=== PATIENT | female | born 1945 | race Caucasian/White ===

== ENCOUNTER → 2016-04-09 | Outpatient (CLI) | payer MEDICARE ==
[~2016-04-09] MED LIST: /WARF2TA PO; ACET50TA PO; ASTE0.15; CALC1CHW PO; CALC500T36 PO; CARV6.25 PO; LYRI75CA PO; PERC7.5T12 PO; PRIL20CA PO; VALA1TAB PO; VITA500019 PO; ZOLO50TA PO
--- NOTE | 2016-04-09 13:08 | REP ---
Clinical: Cough. Technique: PA and lateral. Findings: Subtle increased markings may reflect bronchitis. No focal consolidation, effusion, or pneumothorax. Mediastinum and cardiac silhouette normal. Skeletal structures intact. Surgical clips in the left axillary region. Impression: Possible bronchitis. No focal consolidation. Signed by Morgan Lorenzo MD 04/09/2016 12:59 P
== END ==
LOC: M WUC 12:45
PROVIDERS: ATTEND Nurse Practitioner Family
DX: R05 Cough (principal)

== ENCOUNTER 2016-04-27 08:04 | Emergency (ER) | payer MEDICARE ==
[2016-04-27] MEDS ORDERED: ONDANSETRON 4MG/2ML VIAL (J2405) As Ordered ONE (08:37)
[2016-04-27] MEDS ORDERED: MORPHINE 4 MG/ML 1ML SYRINGE As Ordered ONE ×3 (09:08→11:42)
[2016-04-27 09:17] LABS: BASO % 0.3 % (0.0-1.0); EOS # 0.1 K/mm3 (0.0-0.50); EOS % 0.9 % (0.0-3.0); LARGE UNSTAINED CELL # 0.1 K/mm3 (0.0-0.4); LARGE UNSTAINED CELL % 1.1 % (0.0-4.0); LYMPH # 1.3 K/mm3 (1.5-4.5); LYMPH % 19.8 % (24.0-44.0); MEAN CORPUSCULAR HEMOGLOBIN 31.6 pg (27.0-33.0); MEAN CORPUSCULAR HGB CONC 34.1 g/dl (32.0-36.5); MEAN CORPUSCULAR VOLUME 92.6 fl (80.0-96.0); MONO # 0.3 K/mm3 (0.0-0.8); MONO % 3.8 % (0.0-5.0); NEUTROPHILS % 74.1 % (36.0-66.0); PLATELET COUNT, AUTOMATED 165 k/mm3 (150-450); RED CELL DISTRIBUTION WIDTH 12.7 % (11.5-14.5); WHITE BLOOD COUNT 6.8 K/mm3 (4.0-10.0)
[2016-04-27 09:25] LABS: ALBUMIN 3.7 GM/DL (3.2-5.2); ALBUMIN/GLOBULIN RATIO 1.06 (1.00-1.93); ALKALINE PHOSPHATASE 121 U/L (45-117); ALT/SGPT 23 U/L (12-78); AMYLASE 35 U/L (25-115); ANION GAP 9 MEQ/L (8-16); AST/SGOT 20 U/L (15-37); BILIRUBIN,DIRECT 0.1 MG/DL (0.0-0.2); BILIRUBIN,TOTAL 0.5 MG/DL (0.2-1.0); BLOOD UREA NITROGEN 13 MG/DL (7-18); CARBON DIOXIDE LEVEL 27 MEQ/L (21-32); CHLORIDE LEVEL 106 MEQ/L (98-107); CREATININE FOR GFR 1.09 MG/DL (0.55-1.02); GLOMERULAR FILTRATION RATE 52.7 (>39); GLUCOSE, FASTING 162 MG/DL (83-110); POTASSIUM SERUM 4.3 MEQ/L (3.5-5.1); SODIUM LEVEL 142 MEQ/L (136-145); TOTAL PROTEIN 7.2 GM/DL (6.4-8.2)
[2016-04-27] MEDS ORDERED: GASTROGRAFIN SOLUTION 30ML (Q9963) As Ordered ONE (09:33)
[2016-04-27] MEDS ORDERED: ISOVUE-370 76% 100ML VIAL (Q9967) As Ordered ONE (10:38)
--- NOTE | 2016-04-27 12:15 | REP ---
CHEST, PA AND LATERAL VIEWS: Comparisons are 04/09/2016 and 06/09/2014. The lung martinez are clear. Cardiac size is upper normal. The kathleen, mediastinum, and bony thorax are unremarkable. There are surgical clips in the left axilla, unchanged. IMPRESSION: No acute cardiopulmonary findings. No change from prior studies. Signed by Fredy Perez MD 04/27/2016 05:19 P
[2016-04-27] MEDS ORDERED: KETOROLAC 30 MG/ML VIAL (J1885) As Ordered ONE (13:52)
--- NOTE | 2016-04-27 16:03 | EDDOCDS ---
Nurse's Notes [facility] Name: Micki Coffey Age: 70 yrs Sex: Female : 1945 Arrival Date: 04/27/2016 Time: 08:04 Bed 8 Private MD: Jennifer Escobar Diagnosis: Calculus of ureter-Pancreatic Lesion, possible cyst Presentation: 04/27 08:09 Presenting complaint: Patient states: Left flank pain with vomiting since 3pm dwg yesterday. Acute neurological deficits are not present. Mechanism of Injury: No Mechanism of Injury. Adult Sepsis Screening: The patient does not have new or worsening altered mentation. Patient's respiratory rate is less than 22. Systolic blood pressure is greater than 100. Patient has a qSOFA score of 0- Negative Sepsis Screen. Suicide/Homicide risk assessment- the patient denies having any suicidal and/or homicidal ideations and does not present with any other emotional, behavioral or mental health complaints. 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 Transition of care: patient was not received from another setting of care. 08:09 Acuity: HUMERA Level 3 dwg 08:09 Method Of Arrival: Walkin/Carried/Asstd dwg Triage Assessment: 08:15 General: Appears in no apparent distress. Pain: Pain currently is 9 out of 10 on a pain dwg scale. Historical: - Allergies: Lisinopril; - Home Meds: 1. Drisdol 50,000 unit Oral cap once wkly (Last dose: 04/22/2016) 2. carvedilol 6.25 mg oral tab 2 times per day (Last dose: 04/27/2016) 3. Prilosec 40 mg Oral cpDR once daily (Last dose: 04/27/2016) 4. Zoloft 100 mg Oral tab once daily (Last dose: 04/27/2016) 5. albuterol sulfate 90 mcg/actuation Inhl HFAA 2 puffs as needed (Last dose: 04/22/2016) - PMHx: Cancer, Breast - Left; Hypertension; - PSHx: Hysterectomy; Cholecystectomy; Right knee replacement; Left ankle surgery; - Social history: Smoking status: Patient states was never smoker of tobacco. No barriers to communication noted, The patient speaks fluent German. - Family history: Not pertinent. - : The pt / caregiver states he / she is not on anticoagulants. Home medication list is obtained from the patient. - Exposure Risk Screening:: None identified. Screenin:43 Screening information is obtained from the patient. Fall risk: No risks identified. pml Assistance ADL's: requires no assistance with activities of daily living. Abuse/DV Screen: The patient / caregiver reports he/she is: not in a situation that causes fear, pain or injury. Nutritional screening: No deficits noted. Advance Directives: There is no active DNR order. home support is adequate. Assessment: 08:43 General: Appears uncomfortable, Behavior is appropriate for age. Pain: Location: pml anterior aspect of left lateral abdomen Pain currently is 7 out of 10 on a pain scale. Neurological: Level of Consciousness is awake, alert, Oriented to person, place, time. Cardiovascular: Capillary refill < 3 seconds. Respiratory: Airway is patent Respiratory effort is even, unlabored, Respiratory pattern is regular, symmetrical. GI: Abdomen is non- distended Pt is actively vomiting bile, Bowel sounds present X 4 quads. Abd is soft X 4 quads Abd is tender to palpation in left upper quadrant and left lower quadrant. Derm: Skin is pink, warm & dry. Musculoskeletal: Circulation, motion, and sensation intact Capillary refill < 3 seconds. 10:18 General: pt noted to have spo2 in mid to upper 80s without difficulty breathing or pml respiratory distress. MD Chawla aware. O2 placed at 2LPM via NC. sinus rhythm on monitor without ectopy. . 11:10 General: report received from ELSA Cleary to continue care. Pt in imaging at this time. ttb NAD noted.. 11:38 General: Appears in no apparent distress, Behavior is appropriate for age, cooperative, ttb pleasant. Pain: Location: anterior aspect of left lateral abdomen. Neurological: Level of Consciousness is awake, alert, Oriented to person, place, time, Speech is normal. Cardiovascular: Heart tones S1 S2 present Chest pain is denied. Respiratory: Airway is patent Respiratory effort is even, unlabored, Respiratory pattern is regular, symmetrical, Breath sounds are diminished bilaterally. Denies cough, shortness of breath. GI: Abdomen is non- distended obese, Bowel sounds present X 4 quads. Abd is soft Reports nausea. : Denies burning with urination, urinary frequency, urgency. Derm: Skin is normal. Musculoskeletal: Range of motion intact in all extremities. 11:58 General: pt given pain meds and is resting on stretcher. . ttb 12:58 General: Appears in no apparent distress. Pain: Location: left flank. Neurological: ttb Level of Consciousness is awake, alert. Respiratory: Airway is patent Respiratory effort is even, unlabored. 12:58 Cardiovascular: Chest pain is denied. ttb 13:00 Adult Sepsis Screening: The patient does not have new or worsening altered mentation. ttb Patient's respiratory rate is less than 22. Systolic blood pressure is greater than 100. Patient has a qSOFA score of 0- Negative Sepsis Screen. 13:56 Reassessment: Patient appears in no apparent distress at this time. pt given meds as ttb ordered for continued left flank pain. Sister remains at bedside. NAD noted.. 14:45 Reassessment: Patient appears in no apparent distress at this time. Patient states ttb feeling better. Patient states symptoms have improved. pt states she still has pain, however improved. Pt ambulated with pulse Ox -- sat 90% on RA. No SOB or distress noted. Gait steady.. 15:40 Reassessment: Patient appears in no apparent distress at this time. Patient states ttb feeling better. Patient states symptoms have improved. pt states she is ready for DC. NAD noted. . 15:40 General: Appears in no apparent distress, comfortable, Behavior is cooperative, ttb pleasant. Pain: Location: left flank, minimal now. Neurological: Level of Consciousness is awake, alert. Respiratory: Airway is patent Respiratory effort is even, unlabored. GI: Denies nausea, vomiting. Derm: Skin is normal. Vital Signs: 08:15 BP 190 / 101; Pulse 74; Resp 20; Temp 97.0(T); Pulse Ox 97% on R/A; Weight 104.33 kg; dwg Height 5 ft. 1 in. (154.94 cm); Pain 9/10; 08:39 Pulse 104 MON; Pulse Ox 94% ; pml 08:39 BP 209 / 98 (auto/); pml 09:01 Pulse 84 MON; Pulse Ox 92% ; pml 09:01 BP 186 / 84 (auto/); pml 09:20 Pulse 76 MON; Pulse Ox 88% ; pml 09:20 BP 163 / 78 (auto/); pml 09:31 BP 148 / 91 (auto/); pml 09:35 Pulse 74 MON; Pulse Ox 88% ; pml 09:41 Pain 6/10; pml 10:31 BP 140 / 76 (auto/); ttb 10:31 Pulse 66 MON; Pulse Ox 93% ; ttb 11:00 Pulse 72 MON; Pulse Ox 91% ; ttb 11:30 Pulse 82 MON; Pulse Ox 94% on 2 lpm NC; ttb 11:31 Pulse 82 MON; Pulse Ox 91% ; ttb 11:54 BP 196 / 105 (auto/); ttb 11:54 Pulse 82 MON; Resp 18; Pulse Ox 90% on 2 lpm NC; Pain 6/10; ttb 12:00 Pulse 82 MON; Pulse Ox 95% on 2 lpm NC; ttb 12:45 Pulse Ox 96% on 2 lpm NC; Pain 5/10; ttb 12:58 BP 172 / 81 (auto/); ttb 13:00 Pulse 78 MON; Resp 18; Pulse Ox 97% on 2 lpm NC; Pain 5/10; ttb 15:30 BP 168 / 76 (auto/); ttb 15:30 Pulse 86 MON; Resp 18; Temp 98.6(TE); Pulse Ox 91% on R/A; Pain 0/10; ttb 08:15 Body Mass Index 43.46 (104.33 kg, 154.94 cm) [facility] Vitals: 08:15 Log In Time: April 27, 2016 at 08:03. [facility] ED Course: 08:05 Patient visited by Lor Craven. mm15 08:05 Patient moved to Waiting mm15 08:06 Jennifer Escobar FNP is Private Physician. mm15 08:09 Patient moved to Triage 1 dwg 08:10 Triage Initiated dwg 08:16 Patient moved to 8 dwg 08:17 [facility] jo4 08:17 John hCawla MD is Attending Physician. jo4 08:20 Patient visited by Tori Tapia DO. jo4 08:43 The patient / caregiver is instructed regarding the plan of care and ED course. Patient pml has correct armband on for positive identification. Placed in gown. Bed in low position. Call light in reach. Side rails up X2. property assessment monitor on. Pulse ox on. NIBP on. 08:43 Inserted peripheral IV: 20gauge IV in right antecubital area and blood collected. pml Patient tolerated the procedure well. 08:45 Patient visited by Madiha Bajwa,ELSA. pml 09:04 Patient visited by John Chawla MD. br1 09:13 Patient visited by Madiha Bajwa,ELSA. pml 09:35 O2 via nasal cannula \T\ 2L/min. pml 09:42 UA Sent. pml 10:19 Patient visited by Madiha Bajwa,ELSA. pml 10:24 Patient visited by Cem Carpio PCA. jrd 10:24 EKG done. (by ED staff). Reviewed by Troi Tapia DO. jrd 11:10 Patient visited by Kaye Stephens RN. ttb 11:[address] [facility] Payment Agreement was scanned into [employer] and attached to record. mm15 11:58 Patient visited by Kaye Stephens RN. ttb 11:59 Patient visited by Kaye Stephens RN. ttb 12:54 Chest, 2 View (pa\E\lat) Returned. EDMS 13:02 Patient visited by Kaye Stephens RN. ttb 13:04 Patient visited by Kaye Stephens RN. ttb 13:57 Patient visited by Kaye Stephens RN. ttb 14:00 Patient visited by Kaye Stephens RN. ttb 14:54 Patient visited by Kaye Stephens RN. ttb 14:56 Patient visited by Kaye Stephens RN. ttb 14:59 walked patient with no difficulty to patient o2 stayed between 88-92 94 when laying jb5 down dr and nurse aware. 15:00 Patient visited by Tameka Tineo PCA. jb5 15:18 Patient visited by John Chawla MD. br1 15:22 Jennifer Escobar FNP is Referral Physician. br1 15:22 Angela Orlando MD is Referral Physician. br1 15:40 Patient visited by Kaye Stephens RN. ttb 15:40 Discontinued IV lock intact, bleeding controlled, pressure dressing applied, No ttb redness/swelling at site. No procedures done that require assistance. Administered Medications: 08:42 Drug: Ondansetron 4 mg [ondansetron HCl 2 mg/mL intravenous solution (2 mL)] Route: pml IVP; Site: right antecubital; 09:12 Drug: morphine 4 mg [morphine 4 mg/mL intravenous cartridge (1 mL)] Route: IVP; Site: pml right antecubital; 09:41 Follow up: Pain 6/10 Adult; Response: Pain is decreased pml 09:42 Drug: Diatrizoate Meglumine & Sodium 10 ml [diatrizoate meglumine and diat.sodium 66 pml %-10 % oral solution (10 mL)] Route: PO; 10:10 Drug: Diatrizoate Meglumine & Sodium 10 ml [diatrizoate meglumine and diat.sodium 66 pml %-10 % oral solution (10 mL)] Route: PO; 11:56 Drug: morphine 4 mg [morphine 4 mg/mL intravenous cartridge (1 mL)] Route: IVP; Site: ttb right antecubital; 12:45 Follow up: Pulse Ox 96% 2 lpm Nasal Cannula; Pain 5/10 Adult; Response: No Adverse ttb Reaction; No significant change. 13:55 Drug: ketorolac 15 mg [ketorolac 30 mg/mL (1 mL) injection solution (0.5 mL)] Route: ttb IVP; Site: left antecubital; 14:15 Follow up: Response: No Adverse Reaction; Pain is decreased ttb Order Results: Lab Order: CBC with Diff; SPEC'M 04/27/16 08:33 Test: WHITE BLOOD COUNT; Value: 6.8; Range: 4.0-10.0; Units: K/mm3; Status: F Test: RED BLOOD COUNT; Value: 4.25; Range: 4.00-5.40; Units: M/mm3; Status: F Test: HEMOGLOBIN; Value: 13.4; Range: 12.0-16.0; Units: g/dl; Status: F Test: HEMATOCRIT; Value: 39.4; Range: 36.0-47.0; Units: %; Status: F Test: MEAN CORPUSCULAR VOLUME; Value: 92.6; Range: 80.0-96.0; Units: fl; Status: F Test: MEAN CORPUSCULAR HEMOGLOBIN; Value: 31.6; Range: 27.0-33.0; Units: pg; Status: F Test: MEAN CORPUSCULAR HGB CONC; Value: 34.1; Range: 32.0-36.5; Units: g/dl; Status: F Test: RED CELL DISTRIBUTION WIDTH; Value: 12.7; Range: 11.5-14.5; Units: %; Status: F Test: PLATELET COUNT, AUTOMATED; Value: 165; Range: 150-450; Units: k/mm3; Status: F Test: NEUTROPHILS %; Value: 74.1; Range: 36.0-66.0; Abnormal: Above high normal; Units: %; Status: F Test: LYMPH %; Value: 19.8; Range: 24.0-44.0; Abnormal: Below low normal; Units: %; Status: F Test: MONO %; Value: 3.8; Range: 0.0-5.0; Units: %; Status: F Test: EOS %; Value: 0.9; Range: 0.0-3.0; Units: %; Status: F Test: BASO %; Value: 0.3; Range: 0.0-1.0; Units: %; Status: F Test: LARGE UNSTAINED CELL %; Value: 1.1; Range: 0.0-4.0; Units: %; Status: F Test: NEUTROPHILS #; Value: 5.0; Range: 1.8-7.7; Units: K/mm3; Status: F Test: LYMPH #; Value: 1.3; Range: 1.5-4.5; Abnormal: Below low normal; Units: K/mm3; Status: F Test: MONO #; Value: 0.3; Range: 0.0-0.8; Units: K/mm3; Status: F Test: EOS #; Value: 0.1; Range: 0.0-0.50; Units: K/mm3; Status: F Test: BASO #; Value: 0.0; Range: 0.0-0.2; Units: K/mm3; Status: F Test: LARGE UNSTAINED CELL #; Value: 0.1; Range: 0.0-0.4; Units: K/mm3; Status: F Lab Order: [facility]; SPEC'M 04/27/16 08:33 Test: GLUCOSE, FASTING; Value: 162; Range: 83-110; Abnormal: Above high normal; Units: MG/DL; Status: F Test: BLOOD UREA NITROGEN; Value: 13; Range: 7-18; Units: MG/DL; Status: F Test: CREATININE FOR GFR; Value: 1.09; Range: 0.55-1.02; Abnormal: Above high normal; Units: MG/DL; Status: F Test: GLOMERULAR FILTRATION RATE; Value: 52.7; Range: >39; Status: F Test: SODIUM LEVEL; Value: 142; Range: 136-145; Units: MEQ/L; Status: F Test: POTASSIUM SERUM; Value: 4.3; Range: 3.5-5.1; Units: MEQ/L; Status: F Test: CHLORIDE LEVEL; Value: 106; Range: 98-107; Units: MEQ/L; Status: F Test: CARBON DIOXIDE LEVEL; Value: 27; Range: 21-32; Units: MEQ/L; Status: F Test: ANION GAP; Value: 9; Range: 8-16; Units: MEQ/L; Status: F Test: CALCIUM LEVEL; Value: 9.0; Range: 8.8-10.2; Units: MG/DL; Status: F Test Note: ; Units are mL/min/1.73 m2 Chronic Kidney Disease Staging per NKF: Stage I & II GFR >=60 Normal to Mildly Decreased Stage III GFR 30-59 Moderately Decreased Stage IV GFR 15-29 Severely Decreased Stage V GFR <15 Very Little GFR Left ESRD GFR <15 on CREDENTIALING COORDINATOR Lab Order: AMYLASE; SPEC'04/27/16 08:33 Test: AMYLASE; Value: 35; Range: 25-115; Units: U/L; Status: F Lab Order: LIPASE; SPEC'04/27/16 08:33 Test: LIPASE; Value: 103; Range: 73-393; Units: U/L; Status: F Lab Order: LIVER PROFILE; SPEC04/27/16 08:33 Test: AST/SGOT; Value: 20; Range: 15-37; Units: U/L; Status: F Test: ALT/SGPT; Value: 23; Range: 12-78; Units: U/L; Status: F Test: ALKALINE PHOSPHATASE; Value: 121; Range: 45-117; Abnormal: Above high normal; Units: U/L; Status: F Test: BILIRUBIN,TOTAL; Value: 0.5; Range: 0.2-1.0; Units: MG/DL; Status: F Test: BILIRUBIN,DIRECT; Value: 0.1; Range: 0.0-0.2; Units: MG/DL; Status: F Test: TOTAL PROTEIN; Value: 7.2; Range: 6.4-8.2; Units: GM/DL; Status: F Test: ALBUMIN; Value: 3.7; Range: 3.2-5.2; Units: GM/DL; Status: F Test: ALBUMIN/GLOBULIN RATIO; Value: 1.06; Range: 1.00-1.93; Status: F Lab Order: UA; SPEC'M 04/27/16 08:33 Test: APPEARANCE, URINE; Value: CLOUDY; Range: CLEAR; Abnormal: Above high normal; Status: F Test: COLOR, URINE; Value: YELLOW; Range: YELLOW; Status: F Test: PH,URINE; Value: 5.0; Range: 5.0-9.0; Units: UNITS; Status: F Test: SPECIFIC GRAVITY URINE AUTO; Value: 1.026; Range: 1.002-1.035; Status: F Test: PROTEIN, URINE AUTO; Value: 1+; Range: NEGATIVE; Abnormal: Above high normal; Units: mg/dL; Status: F Test: GLUCOSE, URINE (UA) AUTO; Value: NEGATIVE; Range: NEGATIVE; Units: mg/dL; Status: F Test: KETONE, URINE AUTO; Value: NEGATIVE; Range: NEGATIVE; Units: mg/dL; Status: F Test: UROBILINOGEN, URINE AUTO; Value: 0.2; Range: 0.0-2.0; Units: mg/dL; Status: F Test: BILIRUBIN, URINE AUTO; Value: NEGATIVE; Range: NEGATIVE; Status: F Test: NITRITE, URINE AUTO; Value: NEGATIVE; Range: NEGATIVE; Status: F Test: LEUKOCYTE ESTERASE, URINE AUTO; Value: NEGATIVE; Range: NEGATIVE; Status: F Test: BLOOD, URINE BLOOD; Value: 3+; Range: NEGATIVE; Abnormal: Above high normal; Status: F Test: WBC, URINE AUTO; Value: 4; Range: 0-3; Abnormal: Above high normal; Units: /HPF; Status: F Test: RBC, URINE AUTO; Value: 64; Range: 0-3; Abnormal: Above high normal; Units: /HPF; Status: F Test: BACTERIA, URINE AUTO; Value: NEGATIVE; Range: NEGATIVE; Status: F Test: SQUAMOUS EPITHELIAL CELL UR AU; Value: 2; Range: 0-6; Units: /HPF; Status: F Test: MUCUS, URINE; Value: SMALL; Range: NEGATIVE; Status: F Test: HYALINE CAST, URINE AUTO; Value: 5; Range: 0-1; Units: /LPF; Status: F Lab Order: BNP; SPEC'M 04/27/16 09:00 Test: BRAIN NATRIURETIC PEPTIDE; Value: 47.6; Range: <100; Units: PG/ML; Status: F Lab Order: TROPONIN; SPEC'M 04/27/16 08:33 Test: TROPONIN I; Value: < 0.02; Range: < 0.10; Units: NG/ML; Status: F Test Note: ; Troponin I Reference Interval for Fungos LOCI: 99th Percentile= 0.00-0.045 ng/ml Risk Stratification: <= 0.10 ng/ml Decreased Risk for Adverse Clinical Events. 0.10-1.50 ng/ml Increased Risk for Adverse Clinical Events. Evaluation of additional criterion and/or repeat testing in 2-6 hours is suggested to rule out myocardial damage. >= 1.50 ng/ml Indicative of Myocardial Injury. Radiology Order: Chest, 2 View (pa\E\lat) Test: Chest, 2 View (pa\E\lat) REASON FOR EXAMINATION: Shortness of Breath; CHEST, PA AND LATERAL VIEWS:; ; Comparisons are 04/09/2016 and 06/09/2014.; ; The lung martinez are clear. Cardiac size is upper normal. The kathleen, mediastinum,; and bony thorax are unremarkable.; ; There are surgical clips in the left axilla, unchanged.; ; IMPRESSION:; No acute cardiopulmonary findings. No change from prior studies.; ; Unreviewed; Outcome: 15:22 Discharge ordered by Provider. br1 15:40 Discharge Assessment: Patient awake, alert and oriented x 3. No cognitive and/or ttb functional deficits noted. Patient verbalized understanding of disposition instructions. Patient awake and alert. patient administered narcotics - yes. Pt provided with safe discharge. The following High Risk Discharge criteria are identified: None. Discharged to home ambulatory, with family. Condition: good Condition: stable Condition: improved. Discharge instructions given to patient, family, Instructed on discharge instructions, follow up and referral plans. medication usage, no driving heavy equipment, diet, no drinking with medication, Demonstrated understanding of instructions, medications, no d/d with meds, increase fluids Pt was receptive of discharge instructions/ teaching. Prescriptions given X 2. CT Study completed. Property :Personal belongings accompany Pt. 16:02 Patient left the ED. ttb Signatures: Dispatcher [employer] EDFredy Addison, RN Tameka Horton, MAINTENANCE OF WAY FOREMAN MAINTENANCE OF WAY FOREMAN jb5 John Chawla MD MD br1 Madiha Bajwa RN RN pml Conner, Teresa, RN RN ttLor Hirsch mm15 Cem Carpio, MAINTENANCE OF WAY FOREMAN MAINTENANCE OF WAY FOREMAN jrd Tori Tapia, DO JORDAN jo4 SHEELA
--- NOTE | 2016-04-27 16:03 | EDDOCDS ---
Physician Documentation [facility] Name: Micki Coffey Age: 70 yrs Sex: Female : 1945 Arrival Date: 04/27/2016 Time: 08:04 Bed 8 Private MD: Jennifer Escobar Disposition: 04/27 15:20 I have independently interviewed and examined the patient, and I agree with the br1 investigation, diagnosis and treatment plan as documented by the Resident. Disposition: 04/27/16 15:22 Discharged to Home/Self Care. Impression: Calculus of ureter - Pancreatic Lesion, possible cyst. - Condition is Stable. - Discharge Instructions: Kidney Stones. - Prescriptions for Percocet 5- 325 mg Oral Tablet - take 1 tablet by ORAL route every 6 hours As needed MDD: 4 tabs; 10 tablet. ZOFRAN ODT 4 mg - dissolve 1 tablet by ORAL route 4 times per day As needed do not chew, do not swallow whole; 10 tablet. - Medication Reconciliation, Local Pharmacy Hours form. - Follow up: Jennifer Escobar FNP; When: 4 - 5 days; Reason: Recheck today's complaints. Follow up: Angela Orlando MD; When: 4 - 5 days; Reason: Recheck today's complaints. - Problem is new. - Symptoms are unchanged. - Notes: You were seen in the ED for left sided abdominal pain. CT scan showed a 6 mm kidney stone in the left ureter. Bloodwork otherwise showed no acute findings. We have discussed the case with Urology as well. As you are feeling better you may return home to follow up in the office. You may take Percocet as needed for pain (no driving or operating machinery while on this medicine) and Zofran as needed for nausea. Encourage plenty of fluids. Strain the urine to save the stone for testing with Urology. CT scan also showed a lesion in the pancreas which may be a cyst and will need further evaluation and testing by your primary doctor within the week - please call to arrange to be seen. Return to the ED for any worsening or uncontrolled pain, fever, inability to tolerate oral foods or liquids or any other concerns. Historical: - Allergies: Lisinopril; - Home Meds: 1. Drisdol 50,000 unit Oral cap once wkly (Last dose: 04/22/2016) 2. carvedilol 6.25 mg oral tab 2 times per day (Last dose: 04/27/2016) 3. Prilosec 40 mg Oral cpDR once daily (Last dose: 04/27/2016) 4. Zoloft 100 mg Oral tab once daily (Last dose: 04/27/2016) 5. albuterol sulfate 90 mcg/actuation Inhl HFAA 2 puffs as needed (Last dose: 04/22/2016) - PMHx: Cancer, Breast - Left; Hypertension; - PSHx: Hysterectomy; Cholecystectomy; Right knee replacement; Left ankle surgery; - Social history: Smoking status: Patient states was never smoker of tobacco. No barriers to communication noted, The patient speaks fluent [place]. - Family history: Not pertinent. - : The pt / caregiver states he / she is not on anticoagulants. Home medication list is obtained from the patient. - Exposure Risk Screening:: None identified. Vital Signs: 08:15 BP 190 / 101; Pulse 74; Resp 20; Temp 97.0(T); Pulse Ox 97% on R/A; Weight 104.33 kg / dwg 230.01 lbs; Height 5 ft. 1 in. (154.94 cm); Pain 9/10; 08:39 Pulse 104 MON; Pulse Ox 94% ; pml 08:39 BP 209 / 98 (auto/); pml 09:01 Pulse 84 MON; Pulse Ox 92% ; pml 09:01 BP 186 / 84 (auto/); pml 09:20 Pulse 76 MON; Pulse Ox 88% ; pml 09:20 BP 163 / 78 (auto/); pml 09:31 BP 148 / 91 (auto/); pml 09:35 Pulse 74 MON; Pulse Ox 88% ; pml 09:41 Pain 6/10; pml 10:31 BP 140 / 76 (auto/); ttb 10:31 Pulse 66 MON; Pulse Ox 93% ; ttb 11:00 Pulse 72 MON; Pulse Ox 91% ; ttb 11:30 Pulse 82 MON; Pulse Ox 94% on 2 lpm NC; ttb 11:31 Pulse 82 MON; Pulse Ox 91% ; ttb 11:54 BP 196 / 105 (auto/); ttb 11:54 Pulse 82 MON; Resp 18; Pulse Ox 90% on 2 lpm NC; Pain 6/10; ttb 12:00 Pulse 82 MON; Pulse Ox 95% on 2 lpm NC; ttb 12:45 Pulse Ox 96% on 2 lpm NC; Pain 5/10; ttb 12:58 BP 172 / 81 (auto/); ttb 13:00 Pulse 78 MON; Resp 18; Pulse Ox 97% on 2 lpm NC; Pain 5/10; ttb 15:30 BP 168 / 76 (auto/); ttb 15:30 Pulse 86 MON; Resp 18; Temp 98.6(TE); Pulse Ox 91% on R/A; Pain 0/10; ttb 08:15 Body Mass Index 43.46 (104.33 kg, 154.94 cm) dwg MDM: 08:30 Chip Mixer/Pulse Ox/q 30 min VS ordered. br1 08:30 Misc. Nursing Order ordered. br1 08:41 Ondansetron 4 mg IVP once ordered. pml 09:04 morphine 4 mg IVP every 15 minutes; Document pain score/vitals after each dose (Hold if jo4 SBP < 90mmHg) x2 ordered. 09:04 IV Saline Lock ordered. jo4 09:05 CBC with Diff Ordered. EDMS 09:05 BMP Ordered. EDMS 09:06 CT ABD & PELVIS: IV and Oral Contrast Ordered. EDMS 09:08 AMYLASE Ordered. EDMS 09:08 LIPASE Ordered. EDMS 09:08 LIVER PROFILE Ordered. EDMS 09:35 LIVER PROFILE Reviewed. jo4 09:35 CBC with Diff Reviewed. jo4 09:35 BMP Reviewed. jo4 09:35 AMYLASE Reviewed. jo4 09:35 LIPASE Reviewed. jo4 09:36 UA Ordered. EDMS 09:42 Diatrizoate Meglumine & Sodium Liquid 10 ml PO once; mix in 290cc of water x2 ordered. pml 10:11 Urine Culture Ordered. EDMS 10:17 Oxygen at 2L/min via NC ordered. br1 10:18 Chest, 2 View (pa\E\lat) Ordered. EDMS 10:18 ECG WITH READING ER PHYS+CARDIAG ordered. EDMS 10:18 BNP Ordered. EDMS 10:26 TROPONIN Ordered. EDMS 10:41 BMP Reviewed. jo4 10:41 LIVER PROFILE Reviewed. jo4 10:41 UA Reviewed. jo4 10:41 AMYLASE Reviewed. jo4 10:41 LIPASE Reviewed. jo4 10:45 TROPONIN Reviewed. jo4 10:45 BNP Reviewed. jo4 10:48 LIVER PROFILE Reviewed. jo4 10:48 AMYLASE Reviewed. jo4 10:48 LIPASE Reviewed. jo4 10:48 BMP Reviewed. jo4 10:51 Financial registration complete. mm15 11:41 [facility] Payment Agreement was scanned into [email or web address] and attached to record. mm15 13:28 Chest, 2 View (pa\E\lat) Reviewed. jo4 13:30 ketorolac 15 mg IVP once ordered. jo4 13:56 Diatrizoate Meglumine & Sodium Liquid 10 ml PO once; mix in 290cc of water ordered. pml 14:12 Ambulate Patient wth Pulse Oximetry ordered. br1 15:20 ED course: Seen with resident agree with findings. CT scan shows 6 mm calculus of br1 proximal ureter with moderate left hydronephrosis. Re-evaluated patient, pain controlled, tolerating PO in ED. Discussed with Dr. Orlando, Urology. Recommended DC home, follow up in office, pain control. Will strain urine and encourage oral fluids. Also discussed with patient pancreatic lesion, possible cyst. Discussed need for PCP follow-up within 1 week. Patient understands, agrees, and will call PCP.. Administered Medications: 08:42 Drug: Ondansetron 4 mg [ondansetron HCl 2 mg/mL intravenous solution (2 mL)] Route: pml IVP; Site: right antecubital; 09:12 Drug: morphine 4 mg [morphine 4 mg/mL intravenous cartridge (1 mL)] Route: IVP; Site: pml right antecubital; 09:41 Follow up: Pain 6/10 Adult; Response: Pain is decreased pml 09:42 Drug: Diatrizoate Meglumine & Sodium 10 ml [diatrizoate meglumine and diat.sodium 66 pml %-10 % oral solution (10 mL)] Route: PO; 10:10 Drug: Diatrizoate Meglumine & Sodium 10 ml [diatrizoate meglumine and diat.sodium 66 pml %-10 % oral solution (10 mL)] Route: PO; 11:56 Drug: morphine 4 mg [morphine 4 mg/mL intravenous cartridge (1 mL)] Route: IVP; Site: ttb right antecubital; 12:45 Follow up: Pulse Ox 96% 2 lpm Nasal Cannula; Pain 5/10 Adult; Response: No Adverse ttb Reaction; No significant change. 13:55 Drug: ketorolac 15 mg [ketorolac 30 mg/mL (1 mL) injection solution (0.5 mL)] Route: ttb IVP; Site: left antecubital; 14:15 Follow up: Response: No Adverse Reaction; Pain is decreased ttb Signatures: Dispatcher [employer] EDFredy Addison RN RN dwg Roggie, Brian, MD MD br1 Madiha Bajwa RN RN pml Conner, Teresa, RN RN ttb Lor Craven mm15 Tori Tapia DO DO jo4 The chart was reviewed and I authenticate all verbal orders and agree with the evaluation and treatment provided.Corrections: (The following items were deleted from the chart) 09:08 09:05 LIPASE+LAB ordered. EDMS EDMS 09:08 09:05 AMYLASE+LAB ordered. EDMS EDMS 09:08 09:05 LIVER PROFILE+LAB ordered. EDMS EDMS 10:26 10:18 TROPONIN+LAB ordered. EDMS EDMS Attachments: 11:41 [facility] Payment Agreement mm15 MTDD
--- NOTE | 2016-04-28 08:05 | ECGEPIP ---
Stationary ECG Study [facility] - ED Test Date: 2016-04-27 Pat Name: MARY MCCABE Department: Room: - Gender: F Brushing Operator: amy : 1945 Requested By: REFUGIO Rosas Order Number: [id number] Reading MD: Rhona Trevino Measurements Intervals [place] Rate: 70 P: 18 VT: 190 QRS: -10 QRSD: 97 T: 10 QT: 406 QTc: 439 Interpretive Statements SINUS RHYTHM INFERIOR MYOCARDIAL INFARCTION, PROBABLY OLD DELAYED R PROGRESSION SIMILAR 03/21/15 Electronically Signed On 04-28-2016 8:05:24 EST by Rhona Trevino
--- NOTE | 2016-04-28 10:20 | REP ---
CT of the abdomen and pelvis performed with IV and oral contrast 04/27/2016 Indication: left upper quadrant pain Comparison : CT abdomen pelvis 08/11/2005 performed at [facility] Technique: After drinking two cups of oral contrast, each containing 10 ml gastrographin and 290 ml water, 100 ml Isovue 370 mg/ml was injected intravenously. 3 mm spiral axial sections were then performed through the abdomen and pelvis Findings: Fibro atelectatic changes are seen in lung bases and lingula. There is mild diffuse fatty infiltration of liver. There is a 14 mm cyst in the right dome of liver. There are few calcified granulomata within the spleen liver and spleen are of normal size. Pancreas has some central low density focus most compatible with cyst n the proximal to mid pancreatic body, 9 mm in transverse dimension by 8 mm AP dimension, yet too small to accurately characterize. Adrenal glands are normal. There is moderate left hydronephrosis and secondary to an obstructing 6 mm calculus within the proximal left ureter, just distal to ureteral pelvic junction. Right kidney is without hydronephrosis does contain a 2 mm nonobstructing Nephro calculus. Stomach is unremarkable. The small bowel is without obstruction. The terminal ileum and appendix are normal. Abdominal aorta is of normal course and caliber. There is no retroperitoneal adenopathy. Bladder is partially contracted. Uterus is absent. There is moderate sigmoid diverticulosis. There are scattered diverticuli throughout more proximal colon as well. There is no free air or ascites. Impression 1. Moderate left hydronephrosis secondary to an obstructing 6 mm calculus within the left proximal ureter, just distal to the left uteropelvic junction. 2. Moderate sigmoid diverticulosis. Also there is a lesser degree of scattered diverticuli throughout the more proximal colon 3. Mild diffuse fatty infiltration of liver 4. 9 x 8 mm low density lesion in the proximal to mid pancreas c/w small cyst . Clinical and interval follow up recommended. Signed by Jina Wheat MD 04/28/2016 10:12 A
--- NOTE | 2016-04-29 17:04 | EDDOCDS ---
Nurse's Notes [facility] Name: Micki Mccabe Age: 70 yrs Sex: Female : 1945 Arrival Date: 04/27/2016 Time: 08:04 Bed 8 Private MD: Jennifer Escobar Diagnosis: Calculus of ureter-Pancreatic Lesion, possible cyst Presentation: 04/27 08:09 Presenting complaint: Patient states: Left flank pain with vomiting since 3pm dwg yesterday. Acute neurological deficits are not present. Mechanism of Injury: No Mechanism of Injury. Adult Sepsis Screening: The patient does not have new or worsening altered mentation. Patient's respiratory rate is less than 22. Systolic blood pressure is greater than 100. Patient has a qSOFA score of 0- Negative Sepsis Screen. Suicide/Homicide risk assessment- the patient denies having any suicidal and/or homicidal ideations and does not present with any other emotional, behavioral or mental health complaints. 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 Transition of care: patient was not received from another setting of care. 08:09 Acuity: HUMERA Level 3 dwg 08:09 Method Of Arrival: Walkin/Carried/Asstd dwg Triage Assessment: 08:15 General: Appears in no apparent distress. Pain: Pain currently is 9 out of 10 on a pain dwg scale. Historical: - Allergies: Lisinopril; - Home Meds: 1. Drisdol 50,000 unit Oral cap once wkly (Last dose: 04/22/2016) 2. carvedilol 6.25 mg oral tab 2 times per day (Last dose: 04/27/2016) 3. Prilosec 40 mg Oral cpDR once daily (Last dose: 04/27/2016) 4. Zoloft 100 mg Oral tab once daily (Last dose: 04/27/2016) 5. albuterol sulfate 90 mcg/actuation Inhl HFAA 2 puffs as needed (Last dose: 04/22/2016) - PMHx: Cancer, Breast - Left; Hypertension; - PSHx: Hysterectomy; Cholecystectomy; Right knee replacement; Left ankle surgery; - Social history: Smoking status: Patient states was never smoker of tobacco. No barriers to communication noted, The patient speaks fluent Tajik. - Family history: Not pertinent. - : The pt / caregiver states he / she is not on anticoagulants. Home medication list is obtained from the patient. - Exposure Risk Screening:: None identified. Screenin:43 Screening information is obtained from the patient. Fall risk: No risks identified. pml Assistance ADL's: requires no assistance with activities of daily living. Abuse/DV Screen: The patient / caregiver reports he/she is: not in a situation that causes fear, pain or injury. Nutritional screening: No deficits noted. Advance Directives: There is no active DNR order. home support is adequate. Assessment: 08:43 General: Appears uncomfortable, Behavior is appropriate for age. Pain: Location: pml anterior aspect of left lateral abdomen Pain currently is 7 out of 10 on a pain scale. Neurological: Level of Consciousness is awake, alert, Oriented to person, place, time. Cardiovascular: Capillary refill < 3 seconds. Respiratory: Airway is patent Respiratory effort is even, unlabored, Respiratory pattern is regular, symmetrical. GI: Abdomen is non- distended Pt is actively vomiting bile, Bowel sounds present X 4 quads. Abd is soft X 4 quads Abd is tender to palpation in left upper quadrant and left lower quadrant. Derm: Skin is pink, warm & dry. Musculoskeletal: Circulation, motion, and sensation intact Capillary refill < 3 seconds. 10:18 General: pt noted to have spo2 in mid to upper 80s without difficulty breathing or pml respiratory distress. MD Chawla aware. O2 placed at 2LPM via NC. sinus rhythm on monitor without ectopy. . 11:10 General: report received from ELSA Cleary to continue care. Pt in imaging at this time. ttb NAD noted.. 11:38 General: Appears in no apparent distress, Behavior is appropriate for age, cooperative, ttb pleasant. Pain: Location: anterior aspect of left lateral abdomen. Neurological: Level of Consciousness is awake, alert, Oriented to person, place, time, Speech is normal. Cardiovascular: Heart tones S1 S2 present Chest pain is denied. Respiratory: Airway is patent Respiratory effort is even, unlabored, Respiratory pattern is regular, symmetrical, Breath sounds are diminished bilaterally. Denies cough, shortness of breath. GI: Abdomen is non- distended obese, Bowel sounds present X 4 quads. Abd is soft Reports nausea. : Denies burning with urination, urinary frequency, urgency. Derm: Skin is normal. Musculoskeletal: Range of motion intact in all extremities. 11:58 General: pt given pain meds and is resting on stretcher. . ttb 12:58 General: Appears in no apparent distress. Pain: Location: left flank. Neurological: ttb Level of Consciousness is awake, alert. Respiratory: Airway is patent Respiratory effort is even, unlabored. 12:58 Cardiovascular: Chest pain is denied. ttb 13:00 Adult Sepsis Screening: The patient does not have new or worsening altered mentation. ttb Patient's respiratory rate is less than 22. Systolic blood pressure is greater than 100. Patient has a qSOFA score of 0- Negative Sepsis Screen. 13:56 Reassessment: Patient appears in no apparent distress at this time. pt given meds as ttb ordered for continued left flank pain. Sister remains at bedside. NAD noted.. 14:45 Reassessment: Patient appears in no apparent distress at this time. Patient states ttb feeling better. Patient states symptoms have improved. pt states she still has pain, however improved. Pt ambulated with pulse Ox -- sat 90% on RA. No SOB or distress noted. Gait steady.. 15:40 Reassessment: Patient appears in no apparent distress at this time. Patient states ttb feeling better. Patient states symptoms have improved. pt states she is ready for DC. NAD noted. . 15:40 General: Appears in no apparent distress, comfortable, Behavior is cooperative, ttb pleasant. Pain: Location: left flank, minimal now. Neurological: Level of Consciousness is awake, alert. Respiratory: Airway is patent Respiratory effort is even, unlabored. GI: Denies nausea, vomiting. Derm: Skin is normal. Vital Signs: 08:15 BP 190 / 101; Pulse 74; Resp 20; Temp 97.0(T); Pulse Ox 97% on R/A; Weight 104.33 kg; dwg Height 5 ft. 1 in. (154.94 cm); Pain 9/10; 08:39 Pulse 104 MON; Pulse Ox 94% ; pml 08:39 BP 209 / 98 (auto/); pml 09:01 Pulse 84 MON; Pulse Ox 92% ; pml 09:01 BP 186 / 84 (auto/); pml 09:20 Pulse 76 MON; Pulse Ox 88% ; pml 09:20 BP 163 / 78 (auto/); pml 09:31 BP 148 / 91 (auto/); pml 09:35 Pulse 74 MON; Pulse Ox 88% ; pml 09:41 Pain 6/10; pml 10:31 BP 140 / 76 (auto/); ttb 10:31 Pulse 66 MON; Pulse Ox 93% ; ttb 11:00 Pulse 72 MON; Pulse Ox 91% ; ttb 11:30 Pulse 82 MON; Pulse Ox 94% on 2 lpm NC; ttb 11:31 Pulse 82 MON; Pulse Ox 91% ; ttb 11:54 BP 196 / 105 (auto/); ttb 11:54 Pulse 82 MON; Resp 18; Pulse Ox 90% on 2 lpm NC; Pain 6/10; ttb 12:00 Pulse 82 MON; Pulse Ox 95% on 2 lpm NC; ttb 12:45 Pulse Ox 96% on 2 lpm NC; Pain 5/10; ttb 12:58 BP 172 / 81 (auto/); ttb 13:00 Pulse 78 MON; Resp 18; Pulse Ox 97% on 2 lpm NC; Pain 5/10; ttb 15:30 BP 168 / 76 (auto/); ttb 15:30 Pulse 86 MON; Resp 18; Temp 98.6(TE); Pulse Ox 91% on R/A; Pain 0/10; ttb 08:15 Body Mass Index 43.46 (104.33 kg, 154.94 cm) [facility] Vitals: 08:15 Log In Time: April 27, 2016 at 08:03. [facility] ED Course: 08:05 Patient visited by Lor Craven. mm15 08:05 Patient moved to Waiting mm15 08:06 Jennifer Escobar FNP is Private Physician. mm15 08:09 Patient moved to Triage 1 dwg 08:10 Triage Initiated dwg 08:16 Patient moved to 8 dwg 08:17 Tori Tapia DO is [facility] jo4 08:17 Refugio Chawla MD is Attending Physician. jo4 08:20 Patient visited by Tori Tapia DO. jo4 08:43 The patient / caregiver is instructed regarding the plan of care and ED course. Patient pml has correct armband on for positive identification. Placed in gown. Bed in low position. Call light in reach. Side rails up X2. conveyor monitor on. Pulse ox on. NIBP on. 08:43 Inserted peripheral IV: 20gauge IV in right antecubital area and blood collected. pml Patient tolerated the procedure well. 08:45 Patient visited by Madiha Bajwa,ELSA. pml 09:04 Patient visited by Refugio Chawla MD. br1 09:13 Patient visited by Madiha Bajwa,ELSA. pml 09:35 O2 via nasal cannula \T\ 2L/min. pml 09:42 UA Sent. pml 10:19 Patient visited by Madiha Bajwa,ELSA. pml 10:24 Patient visited by Cem Carpio PCA. jrd 10:24 EKG done. (by ED staff). Reviewed by Tori Tapia DO. jrd 11:10 Patient visited by Kaye Stephens RN. ttb 11:41 [facility] Payment Agreement was scanned into Attune and attached to record. mm15 11:58 Patient visited by Kaye Stephens RN. ttb 11:59 Patient visited by Kaye Stephens RN. ttb 12:54 Chest, 2 View (pa\E\lat) Returned. EDMS 13:02 Patient visited by Kaye Stephens RN. ttb 13:04 Patient visited by Kaye Stephens RN. ttb 13:57 Patient visited by Kaye Stephens RN. ttb 14:00 Patient visited by Kaye Stephens RN. ttb 14:54 Patient visited by Kaye Stephens RN. ttb 14:56 Patient visited by Kaye Stephens RN. ttb 14:59 walked patient with no difficulty to patient o2 stayed between 88-92 94 when laying jb5 down dr and nurse aware. 15:00 Patient visited by Tameka Tineo PCA. jb5 15:18 Patient visited by Refugio Chawla MD. br1 15:22 Jennifer Escobar FNP is Referral Physician. br1 15:22 Angela Orlando MD is Referral Physician. br1 15:40 Patient visited by Kaye Stephens RN. ttb 15:40 Discontinued IV lock intact, bleeding controlled, pressure dressing applied, No ttb redness/swelling at site. No procedures done that require assistance. 17:22 Chest, 2 View (pa\E\lat) Returned. EDMS 04/28 08:41 EKG-ADULT Returned. EDMS 10:51 CT ABD & PELVIS: IV and Oral Contrast Returned. EDMS 12:07 T-Sheet-- Draft Copy was scanned into Attune and attached to record. gb 12:07 ECG/EKG was scanned into Attune and attached to record. gb Administered Medications: 04/27 08:42 Drug: Ondansetron 4 mg [ondansetron HCl 2 mg/mL intravenous solution (2 mL)] Route: pml IVP; Site: right antecubital; 09:12 Drug: morphine 4 mg [morphine 4 mg/mL intravenous cartridge (1 mL)] Route: IVP; Site: pml right antecubital; 09:41 Follow up: Pain 6/10 Adult; Response: Pain is decreased [facility] 09:42 Drug: Diatrizoate Meglumine & Sodium 10 ml [diatrizoate meglumine and diat.sodium 66 pml %-10 % oral solution (10 mL)] Route: PO; 10:10 Drug: Diatrizoate Meglumine & Sodium 10 ml [diatrizoate meglumine and diat.sodium 66 pml %-10 % oral solution (10 mL)] Route: PO; 11:56 Drug: morphine 4 mg [morphine 4 mg/mL intravenous cartridge (1 mL)] Route: IVP; Site: ttb right antecubital; 12:45 Follow up: Pulse Ox 96% 2 lpm Nasal Cannula; Pain 5/10 Adult; Response: No Adverse ttb Reaction; No significant change. 13:55 Drug: ketorolac 15 mg [ketorolac 30 mg/mL (1 mL) injection solution (0.5 mL)] Route: ttb IVP; Site: left antecubital; 14:15 Follow up: Response: No Adverse Reaction; Pain is decreased ttb Order Results: Lab Order: CBC with Diff; SPEC'M 04/27/16 08:33 Test: WHITE BLOOD COUNT; Value: 6.8; Range: 4.0-10.0; Units: K/mm3; Status: F Test: RED BLOOD COUNT; Value: 4.25; Range: 4.00-5.40; Units: M/mm3; Status: F Test: HEMOGLOBIN; Value: 13.4; Range: 12.0-16.0; Units: g/dl; Status: F Test: HEMATOCRIT; Value: 39.4; Range: 36.0-47.0; Units: %; Status: F Test: MEAN CORPUSCULAR VOLUME; Value: 92.6; Range: 80.0-96.0; Units: fl; Status: F Test: MEAN CORPUSCULAR HEMOGLOBIN; Value: 31.6; Range: 27.0-33.0; Units: pg; Status: F Test: MEAN CORPUSCULAR HGB CONC; Value: 34.1; Range: 32.0-36.5; Units: g/dl; Status: F Test: RED CELL DISTRIBUTION WIDTH; Value: 12.7; Range: 11.5-14.5; Units: %; Status: F Test: PLATELET COUNT, AUTOMATED; Value: 165; Range: 150-450; Units: k/mm3; Status: F Test: NEUTROPHILS %; Value: 74.1; Range: 36.0-66.0; Abnormal: Above high normal; Units: %; Status: F Test: LYMPH %; Value: 19.8; Range: 24.0-44.0; Abnormal: Below low normal; Units: %; Status: F Test: MONO %; Value: 3.8; Range: 0.0-5.0; Units: %; Status: F Test: EOS %; Value: 0.9; Range: 0.0-3.0; Units: %; Status: F Test: BASO %; Value: 0.3; Range: 0.0-1.0; Units: %; Status: F Test: LARGE UNSTAINED CELL %; Value: 1.1; Range: 0.0-4.0; Units: %; Status: F Test: NEUTROPHILS #; Value: 5.0; Range: 1.8-7.7; Units: K/mm3; Status: F Test: LYMPH #; Value: 1.3; Range: 1.5-4.5; Abnormal: Below low normal; Units: K/mm3; Status: F Test: MONO #; Value: 0.3; Range: 0.0-0.8; Units: K/mm3; Status: F Test: EOS #; Value: 0.1; Range: 0.0-0.50; Units: K/mm3; Status: F Test: BASO #; Value: 0.0; Range: 0.0-0.2; Units: K/mm3; Status: F Test: LARGE UNSTAINED CELL #; Value: 0.1; Range: 0.0-0.4; Units: K/mm3; Status: F Lab Order: BMP; SPEC' 04/27/16 08:33 Test: GLUCOSE, FASTING; Value: 162; Range: 83-110; Abnormal: Above high normal; Units: MG/DL; Status: F Test: BLOOD UREA NITROGEN; Value: 13; Range: 7-18; Units: MG/DL; Status: F Test: CREATININE FOR GFR; Value: 1.09; Range: 0.55-1.02; Abnormal: Above high normal; Units: MG/DL; Status: F Test: GLOMERULAR FILTRATION RATE; Value: 52.7; Range: >39; Status: F Test: SODIUM LEVEL; Value: 142; Range: 136-145; Units: MEQ/L; Status: F Test: POTASSIUM SERUM; Value: 4.3; Range: 3.5-5.1; Units: MEQ/L; Status: F Test: CHLORIDE LEVEL; Value: 106; Range: 98-107; Units: MEQ/L; Status: F Test: CARBON DIOXIDE LEVEL; Value: 27; Range: 21-32; Units: MEQ/L; Status: F Test: ANION GAP; Value: 9; Range: 8-16; Units: MEQ/L; Status: F Test: CALCIUM LEVEL; Value: 9.0; Range: 8.8-10.2; Units: MG/DL; Status: F Test Note: ; Units are mL/min/1.73 m2 Chronic Kidney Disease Staging per NKF: Stage I & II GFR >=60 Normal to Mildly Decreased Stage III GFR 30-59 Moderately Decreased Stage IV GFR 15-29 Severely Decreased Stage V GFR <15 Very Little GFR Left ESRD GFR <15 on WATER FITNESS INSTRUCTOR Lab Order: AMYLASE; SPEC'M 04/27/16 08:33 Test: AMYLASE; Value: 35; Range: 25-115; Units: U/L; Status: F Lab Order: LIPASE; SPEC' 04/27/16 08:33 Test: LIPASE; Value: 103; Range: 73-393; Units: U/L; Status: F Lab Order: LIVER PROFILE; SPEC'M 04/27/16 08:33 Test: AST/SGOT; Value: 20; Range: 15-37; Units: U/L; Status: F Test: ALT/SGPT; Value: 23; Range: 12-78; Units: U/L; Status: F Test: ALKALINE PHOSPHATASE; Value: 121; Range: 45-117; Abnormal: Above high normal; Units: U/L; Status: F Test: BILIRUBIN,TOTAL; Value: 0.5; Range: 0.2-1.0; Units: MG/DL; Status: F Test: BILIRUBIN,DIRECT; Value: 0.1; Range: 0.0-0.2; Units: MG/DL; Status: F Test: TOTAL PROTEIN; Value: 7.2; Range: 6.4-8.2; Units: GM/DL; Status: F Test: ALBUMIN; Value: 3.7; Range: 3.2-5.2; Units: GM/DL; Status: F Test: ALBUMIN/GLOBULIN RATIO; Value: 1.06; Range: 1.00-1.93; Status: F Lab Order: UA; SPEC'M 04/27/16 08:33 Test: APPEARANCE, URINE; Value: CLOUDY; Range: CLEAR; Abnormal: Above high normal; Status: F Test: COLOR, URINE; Value: YELLOW; Range: YELLOW; Status: F Test: PH,URINE; Value: 5.0; Range: 5.0-9.0; Units: UNITS; Status: F Test: SPECIFIC GRAVITY URINE AUTO; Value: 1.026; Range: 1.002-1.035; Status: F Test: PROTEIN, URINE AUTO; Value: 1+; Range: NEGATIVE; Abnormal: Above high normal; Units: mg/dL; Status: F Test: GLUCOSE, URINE (UA) AUTO; Value: NEGATIVE; Range: NEGATIVE; Units: mg/dL; Status: F Test: KETONE, URINE AUTO; Value: NEGATIVE; Range: NEGATIVE; Units: mg/dL; Status: F Test: UROBILINOGEN, URINE AUTO; Value: 0.2; Range: 0.0-2.0; Units: mg/dL; Status: F Test: BILIRUBIN, URINE AUTO; Value: NEGATIVE; Range: NEGATIVE; Status: F Test: NITRITE, URINE AUTO; Value: NEGATIVE; Range: NEGATIVE; Status: F Test: LEUKOCYTE ESTERASE, URINE AUTO; Value: NEGATIVE; Range: NEGATIVE; Status: F Test: BLOOD, URINE BLOOD; Value: 3+; Range: NEGATIVE; Abnormal: Above high normal; Status: F Test: WBC, URINE AUTO; Value: 4; Range: 0-3; Abnormal: Above high normal; Units: /HPF; Status: F Test: RBC, URINE AUTO; Value: 64; Range: 0-3; Abnormal: Above high normal; Units: /HPF; Status: F Test: BACTERIA, URINE AUTO; Value: NEGATIVE; Range: NEGATIVE; Status: F Test: SQUAMOUS EPITHELIAL CELL UR AU; Value: 2; Range: 0-6; Units: /HPF; Status: F Test: MUCUS, URINE; Value: SMALL; Range: NEGATIVE; Status: F Test: HYALINE CAST, URINE AUTO; Value: 5; Range: 0-1; Units: /LPF; Status: F Lab Order: Urine Culture; SPEC'M 04/27/16 08:33 Test: URINE CULTURE; Value: URINE CULTURE RESULT NO GROWTH CLINICAL SIGNIFICANCE 1 ORGANISM; Status: F Lab Order: BNP; SPEC'M 04/27/16 09:00 Test: BRAIN NATRIURETIC PEPTIDE; Value: 47.6; Range: <100; Units: PG/ML; Status: F Lab Order: TROPONIN; SPEC'M 04/27/16 08:33 Test: TROPONIN I; Value: < 0.02; Range: < 0.10; Units: NG/ML; Status: F Test Note: ; Troponin I Reference Interval for [employer] LOCI: 99th Percentile= 0.00-0.045 ng/ml Risk Stratification: <= 0.10 ng/ml Decreased Risk for Adverse Clinical Events. 0.10-1.50 ng/ml Increased Risk for Adverse Clinical Events. Evaluation of additional criterion and/or repeat testing in 2-6 hours is suggested to rule out myocardial damage. >= 1.50 ng/ml Indicative of Myocardial Injury. Radiology Order: CT ABD & PELVIS: IV and Oral Contrast Test: CT ABD & PELVIS: IV and Oral Contrast REASON FOR EXAMINATION: LUQ pain; CT of the abdomen and pelvis performed with IV and oral contrast 04/27/2016; ; Indication: left upper quadrant pain; ; Comparison : CT abdomen pelvis 08/11/2005 performed at [facility]; ; Technique: After drinking two cups of oral contrast, each containing 10 ml; gastrographin and 290 ml water, 100 ml Isovue 370 mg/ml was injected; intravenously. 3 mm spiral axial sections were then performed through the; abdomen and pelvis; ; Findings: Fibro atelectatic changes are seen in lung bases and lingula.; ; There is mild diffuse fatty infiltration of liver. There is a 14 mm cyst in the; right dome of liver. There are few calcified granulomata within the spleen liver; and spleen are of normal size. Pancreas has some central low density focus most; compatible with cyst n the proximal to mid pancreatic body, 9 mm in transverse; dimension by 8 mm AP dimension, yet too small to accurately characterize.; Adrenal glands are normal. There is moderate left hydronephrosis and secondary; to an obstructing 6 mm calculus within the proximal left ureter, just distal to; ureteral pelvic junction. Right kidney is without hydronephrosis does contain a; 2 mm nonobstructing Nephro calculus. Stomach is unremarkable. The small bowel; is without obstruction. The terminal ileum and appendix are normal. Abdominal; aorta is of normal course and caliber. There is no retroperitoneal adenopathy.; ; Bladder is partially contracted. Uterus is absent. There is moderate sigmoid; diverticulosis. There are scattered diverticuli throughout more proximal colon; as well. There is no free air or ascites.; ; Impression; 1. Moderate left hydronephrosis secondary to an obstructing 6 mm calculus within; the left proximal ureter, just distal to the left uteropelvic junction.; 2. Moderate sigmoid diverticulosis. Also there is a lesser degree of scattered; diverticuli throughout the more proximal colon; 3. Mild diffuse fatty infiltration of liver; 4. 9 x 8 mm low density lesion in the proximal to mid pancreas c/w small cyst .; Clinical and interval follow up recommended.; ; ; Signed by; Jina Wheat MD 04/28/2016 10:12 A; Radiology Order: Chest, 2 View (pa\E\lat) Test: Chest, 2 View (pa\E\lat) REASON FOR EXAMINATION: Shortness of Breath; CHEST, PA AND LATERAL VIEWS: Comparisons are 04/09/2016 and 06/09/2014.; ; The lung martinez are clear. Cardiac size is upper normal. The kathleen, mediastinum,; and bony thorax are unremarkable.; ; There are surgical clips in the left axilla, unchanged.; ; IMPRESSION:; ; No acute cardiopulmonary findings. No change from prior studies.; ; ; Signed by; Fredy Perez MD 04/27/2016 05:19 P; Radiology Order: EKG-ADULT Test: EKG-ADULT REASON FOR EXAMINATION: Shortness of Breath; Stationary ECG Study; [facility] - ED; ; Test Date: 2016-04-27; Pat Name: MICKI MCCABE Department:; Room: -; Gender: F Manager Packaging: amy; : 1945 Requested By: REFUGIO Rosas; Order Number: [id number] Reading MD: Rhona Trevino; Measurements; Intervals [place]; Rate: 70 P: 18; DE: 190 QRS: -10; QRSD: 97 T: 10; QT: 406; QTc: 439; Interpretive Statements; SINUS RHYTHM; INFERIOR MYOCARDIAL INFARCTION, PROBABLY OLD; DELAYED R PROGRESSION; SIMILAR 03/21/15; Electronically Signed On 04-28-2016 8:05:24 EST by Rhona Trevino; Outcome: 15:22 Discharge ordered by Provider. br1 15:40 Discharge Assessment: Patient awake, alert and oriented x 3. No cognitive and/or ttb functional deficits noted. Patient verbalized understanding of disposition instructions. Patient awake and alert. patient administered narcotics - yes. Pt provided with safe discharge. The following High Risk Discharge criteria are identified: None. Discharged to home ambulatory, with family. Condition: good Condition: stable Condition: improved. Discharge instructions given to patient, family, Instructed on discharge instructions, follow up and referral plans. medication usage, no driving heavy equipment, diet, no drinking with medication, Demonstrated understanding of instructions, medications, no d/d with meds, increase fluids Pt was receptive of discharge instructions/ teaching. Prescriptions given X 2. CT Study completed. Property :Personal belongings accompany Pt. 16:02 Patient left the ED. ttb Signatures: Dispatcher [employer] EDMS Fredy Dawn, ELSA RN dwg Soumya Neal, Reg Reg gb Tameka Tineo, CIGARETTE MACHINES MECHANIC CIGARETTE MACHINES MECHANIC jb5 Refugio Chawla MD MD br1 Madiha Bajwa RN RN pml Conner, Teresa, RN RN ttb Lor Craven mm15 Cem Carpio, PEDRO CIGARETTE MACHINES MECHANIC jrd Tori Tapia, DO DO jo4 Chart Complete MTDD
--- NOTE | 2016-04-29 17:05 | EDDOCDS ---
Physician Documentation [facility] Name: Micki Coffey Age: 70 yrs Sex: Female : 1945 Arrival Date: 04/27/2016 Time: 08:04 Bed 8 Private MD: Jennifer Escobar Disposition: 04/27 15:20 I have independently interviewed and examined the patient, and I agree with the br1 investigation, diagnosis and treatment plan as documented by the Resident. Disposition: 04/27/16 15:22 Discharged to Home/Self Care. Impression: Calculus of ureter - Pancreatic Lesion, possible cyst. - Condition is Stable. - Discharge Instructions: Kidney Stones. - Prescriptions for Percocet 5- 325 mg Oral Tablet - take 1 tablet by ORAL route every 6 hours As needed MDD: 4 tabs; 10 tablet. ZOFRAN ODT 4 mg - dissolve 1 tablet by ORAL route 4 times per day As needed do not chew, do not swallow whole; 10 tablet. - Medication Reconciliation, Local Pharmacy Hours form. - Follow up: Jennifer Escobar FNP; When: 4 - 5 days; Reason: Recheck today's complaints. Follow up: Angela Orlando MD; When: 4 - 5 days; Reason: Recheck today's complaints. - Problem is new. - Symptoms are unchanged. - Notes: You were seen in the ED for left sided abdominal pain. CT scan showed a 6 mm kidney stone in the left ureter. Bloodwork otherwise showed no acute findings. We have discussed the case with Urology as well. As you are feeling better you may return home to follow up in the office. You may take Percocet as needed for pain (no driving or operating machinery while on this medicine) and Zofran as needed for nausea. Encourage plenty of fluids. Strain the urine to save the stone for testing with Urology. CT scan also showed a lesion in the pancreas which may be a cyst and will need further evaluation and testing by your primary doctor within the week - please call to arrange to be seen. Return to the ED for any worsening or uncontrolled pain, fever, inability to tolerate oral foods or liquids or any other concerns. Historical: - Allergies: Lisinopril; - Home Meds: 1. Drisdol 50,000 unit Oral cap once wkly (Last dose: 04/22/2016) 2. carvedilol 6.25 mg oral tab 2 times per day (Last dose: 04/27/2016) 3. Prilosec 40 mg Oral cpDR once daily (Last dose: 04/27/2016) 4. Zoloft 100 mg Oral tab once daily (Last dose: 04/27/2016) 5. albuterol sulfate 90 mcg/actuation Inhl HFAA 2 puffs as needed (Last dose: 04/22/2016) - PMHx: Cancer, Breast - Left; Hypertension; - PSHx: Hysterectomy; Cholecystectomy; Right knee replacement; Left ankle surgery; - Social history: Smoking status: Patient states was never smoker of tobacco. No barriers to communication noted, The patient speaks fluent Nepalese. - Family history: Not pertinent. - : The pt / caregiver states he / she is not on anticoagulants. Home medication list is obtained from the patient. - Exposure Risk Screening:: None identified. Vital Signs: 08:15 BP 190 / 101; Pulse 74; Resp 20; Temp 97.0(T); Pulse Ox 97% on R/A; Weight 104.33 kg / dwg 230.01 lbs; Height 5 ft. 1 in. (154.94 cm); Pain 9/10; 08:39 Pulse 104 MON; Pulse Ox 94% ; pml 08:39 BP 209 / 98 (auto/); pml 09:01 Pulse 84 MON; Pulse Ox 92% ; pml 09:01 BP 186 / 84 (auto/); pml 09:20 Pulse 76 MON; Pulse Ox 88% ; pml 09:20 BP 163 / 78 (auto/); pml 09:31 BP 148 / 91 (auto/); pml 09:35 Pulse 74 MON; Pulse Ox 88% ; pml 09:41 Pain 6/10; pml 10:31 BP 140 / 76 (auto/); ttb 10:31 Pulse 66 MON; Pulse Ox 93% ; ttb 11:00 Pulse 72 MON; Pulse Ox 91% ; ttb 11:30 Pulse 82 MON; Pulse Ox 94% on 2 lpm NC; ttb 11:31 Pulse 82 MON; Pulse Ox 91% ; ttb 11:54 BP 196 / 105 (auto/); ttb 11:54 Pulse 82 MON; Resp 18; Pulse Ox 90% on 2 lpm NC; Pain 6/10; ttb 12:00 Pulse 82 MON; Pulse Ox 95% on 2 lpm NC; ttb 12:45 Pulse Ox 96% on 2 lpm NC; Pain 5/10; ttb 12:58 BP 172 / 81 (auto/); ttb 13:00 Pulse 78 MON; Resp 18; Pulse Ox 97% on 2 lpm NC; Pain 5/10; ttb 15:30 BP 168 / 76 (auto/); ttb 15:30 Pulse 86 MON; Resp 18; Temp 98.6(TE); Pulse Ox 91% on R/A; Pain 0/10; ttb 08:15 Body Mass Index 43.46 (104.33 kg, 154.94 cm) dwg MDM: 08:30 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 br1 08:30 Misc. Nursing Order ordered. br1 08:41 Ondansetron 4 mg IVP once ordered. pml 09:04 morphine 4 mg IVP every 15 minutes; Document pain score/vitals after each dose (Hold if jo4 SBP < 90mmHg) x2 ordered. 09:04 IV Saline Lock ordered. jo4 09:05 CBC with Diff Ordered. EDMS 09:05 BMP Ordered. EDMS 09:06 CT ABD & PELVIS: IV and Oral Contrast Ordered. EDMS 09:08 AMYLASE Ordered. EDMS 09:08 LIPASE Ordered. EDMS 09:08 LIVER PROFILE Ordered. EDMS 09:35 LIVER PROFILE Reviewed. jo4 09:35 CBC with Diff Reviewed. jo4 09:35 BMP Reviewed. jo4 09:35 AMYLASE Reviewed. jo4 09:35 LIPASE Reviewed. jo4 09:36 UA Ordered. EDMS 09:42 Diatrizoate Meglumine & Sodium Liquid 10 ml PO once; mix in 290cc of water x2 ordered. pml 10:11 Urine Culture Ordered. EDMS 10:17 Oxygen at 2L/min via NC ordered. br1 10:18 Chest, 2 View (pa\E\lat) Ordered. EDMS 10:18 ECG WITH READING ER PHYS+CARDIAG ordered. EDMS 10:18 BNP Ordered. EDMS 10:26 TROPONIN Ordered. EDMS 10:41 BMP Reviewed. jo4 10:41 LIVER PROFILE Reviewed. jo4 10:41 UA Reviewed. jo4 10:41 AMYLASE Reviewed. jo4 10:41 LIPASE Reviewed. jo4 10:45 TROPONIN Reviewed. jo4 10:45 BNP Reviewed. jo4 10:48 LIVER PROFILE Reviewed. jo4 10:48 AMYLASE Reviewed. jo4 10:48 LIPASE Reviewed. jo4 10:48 BMP Reviewed. jo4 10:51 Financial registration complete. mm15 11:41 [facility] Payment Agreement was scanned into [employer] and attached to record. mm15 13:28 Chest, 2 View (pa\E\lat) Reviewed. jo4 13:30 ketorolac 15 mg IVP once ordered. jo4 13:56 Diatrizoate Meglumine & Sodium Liquid 10 ml PO once; mix in 290cc of water ordered. pml 14:12 Ambulate Patient wth Pulse Oximetry ordered. br1 15:20 ED course: Seen with resident agree with findings. CT scan shows 6 mm calculus of br1 proximal ureter with moderate left hydronephrosis. Re-evaluated patient, pain controlled, tolerating PO in ED. Discussed with Dr. Orlando, Urology. Recommended DC home, follow up in office, pain control. Will strain urine and encourage oral fluids. Also discussed with patient pancreatic lesion, possible cyst. Discussed need for PCP follow-up within 1 week. Patient understands, agrees, and will call PCP.. 04/28 12:07 T-Sheet-- Draft Copy was scanned into [employer] and attached to record. gb 12:07 ECG/EKG was scanned into [employer] and attached to record. gb Administered Medications: 04/27 08:42 Drug: Ondansetron 4 mg [ondansetron HCl 2 mg/mL intravenous solution (2 mL)] Route: pml IVP; Site: right antecubital; 09:12 Drug: morphine 4 mg [morphine 4 mg/mL intravenous cartridge (1 mL)] Route: IVP; Site: pml right antecubital; 09:41 Follow up: Pain 6/10 Adult; Response: Pain is decreased pml 09:42 Drug: Diatrizoate Meglumine & Sodium 10 ml [diatrizoate meglumine and diat.sodium 66 pml %-10 % oral solution (10 mL)] Route: PO; 10:10 Drug: Diatrizoate Meglumine & Sodium 10 ml [diatrizoate meglumine and diat.sodium 66 pml %-10 % oral solution (10 mL)] Route: PO; 11:56 Drug: morphine 4 mg [morphine 4 mg/mL intravenous cartridge (1 mL)] Route: IVP; Site: ttb right antecubital; 12:45 Follow up: Pulse Ox 96% 2 lpm Nasal Cannula; Pain 5/10 Adult; Response: No Adverse ttb Reaction; No significant change. 13:55 Drug: ketorolac 15 mg [ketorolac 30 mg/mL (1 mL) injection solution (0.5 mL)] Route: ttb IVP; Site: left antecubital; 14:15 Follow up: Response: No Adverse Reaction; Pain is decreased ttb Signatures: Dispatcher [employer] EDMS Fredy Dawn, RN RN dwg Soumya Neal, Reg Reg gb John Chawla MD MD br1 Madiha Bajwa RN RN Kaye Fischer RN RN ttb Lor Craven mm15 Tori Tapia DO DO jo4 The chart was reviewed and I authenticate all verbal orders and agree with the evaluation and treatment provided.Corrections: (The following items were deleted from the chart) 09:08 09:05 LIPASE+LAB ordered. EDMS EDMS 09:08 09:05 AMYLASE+LAB ordered. EDMS EDMS 09:08 09:05 LIVER PROFILE+LAB ordered. EDMS EDMS 10:26 10:18 TROPONIN+LAB ordered. EDMS EDMS Attachments: 11:41 [facility] Payment Agreement mm15 04/28 12:07 T-Sheet-- Draft Copy gb 12:07 ECG/EKG gb Chart Complete MTDD
== END 2016-04-27 16:02 | disposition home or self-care (01) ==
LOC: M ED 08:04
DX: N20.1 Calculus of ureter (principal); K86.89 Other specified diseases of pancreas; I10 Essential (primary) hypertension; Z85.3 Personal history of malignant neoplasm of breast; Z79.899 Other long term (current) drug therapy; Z88.8 Allergy status to other drugs, medicaments and biological substances
CPT/HCPCS: 36415; 71020; 74177; 80048; 80076; 81001; 82150; 83690; 83880; 84484; 85025; 87086; 93005; 93041; 96374; 96375; 96376; 99285; J1885; J2405; Q9963; Q9967

== ENCOUNTER → 2016-05-03 | Outpatient (CLI) | payer MEDICARE ==
[~2016-05-03] MED LIST changes: +ATOR1TAB19 PO; +AZEL0.055; +CALCTAB60 PO; +DRIS50002 PO; +FLUTISP; +MAGN1CAP PO; +MULT1TAB18 PO; +PERC5TAB6 PO; +PRIL20CA9 PO; +PROA1AER INH; +VALT1TAB PO; +ZOFR4TAB3 PO; +ZOLO100T PO
--- NOTE | 2016-05-03 10:41 | REP ---
KUB, ONE VIEW: HISTORY: Ureteral stone. COMPARISON: CT 04/27/2016. A small amount of air is present in small and large intestine. There are no air fluid levels or dilated loops of intestine. There is no pneumoperitoneum. Calcification is present overlying the right kidney consistent with nephrolithiasis. The previously noted left ureteral stone present at the L3 level is not seen in the present radiograph. Surgical clips are present in the right upper quadrant. IMPRESSION: 1. Nonspecific bowel gas pattern. 2. The previously seen left ureteral stone is not seen in the present radiograph. Signed by Abdulaziz Harkins MD 05/03/2016 10:56 A
[2016-05-03 13:30] LABS: INR 1.02
== END ==
LOC: M SMT 10:14
PROVIDERS: ATTEND Nurse Practitioner Women's Health
DX: Z01.818 Encounter for other preprocedural examination (principal); N13.2 Hydronephrosis with renal and ureteral calculous obstruction; Z79.899 Other long term (current) drug therapy; I10 Essential (primary) hypertension; F33.9 Major depressive disorder, recurrent, unspecified; F41.9 Anxiety disorder, unspecified; M85.80 Other specified disorders of bone density and structure, unspecified site; E78.5 Hyperlipidemia, unspecified; E55.9 Vitamin D deficiency, unspecified; Z79.891 Long term (current) use of opiate analgesic
CPT/HCPCS: 74000; 81001; 85610; 85730; 87086; G0463

== ENCOUNTER → 2016-05-04 | Day surgery (SDC) | payer MEDICARE ==
[~2016-05-04] VITALS: Ht 158.8 cm; Wt 109.0 kg
[~2016-05-04] MED LIST changes: +CONRAY-60 60% 50ML VIAL (Q9961) As Ordered ONE; +CONRAY-60 60% 50ML VIAL (Q9961) XX ONE; +GLYCOPYRROLATE INJ 0.2 MG/ML 2 ML VIAL As Ordered ONE; +LABETALOL HCL 100 MG/20 ML VIAL As Ordered ONE; +LIDOCAINE 2% INJ 100 MG/5 ML SDV (FOR ANES.) As Ordered ONE; +LR 1,000 ML IV SCH; +MEPERIDINE INJ 25 MG/ML VIAL (J2175) IV PRN; +METOCLOPRAMIDE INJ 10MG/2ML VIAL (J2765) As Ordered ONE; +METOCLOPRAMIDE INJ 10MG/2ML VIAL (J2765) IV PRN; +MIDAZOLAM INJ 2 MG/2 ML VIAL (J2250) As Ordered ONE; +NEOSTIGMINE 1MG/ML 5 ML SYRINGE (J2710) As Ordered ONE; +ONDANSETRON 4MG/2ML VIAL (J2405) As Ordered ONE; +ONDANSETRON 4MG/2ML VIAL (J2405) IV PRN; +PERCOCET 5MG/325MG TAB PO PRN; +PROPOFOL 200 MG/20 ML VIAL As Ordered ONE; +ROCURONIUM BROMIDE 50 MG/5 ML VIAL As Ordered ONE; +fentaNYL 100 MCG/2 ML INJECTION (J3010) As Ordered ONE; +fentaNYL 100 MCG/2 ML INJECTION (J3010) IV PRN
--- NOTE | 2016-05-04 16:50 | REP ---
Retrograde pyelogram: Three views. History: Kidney stone. 7 seconds of fluoroscopy time is reported. Findings: A sequence of three fluoroscopically obtained intraprocedural spot radiographs of the left abdomen document ureteroscope guidewire manipulation of the left ureter with contrast injection and double pigtail ureteral stenting. Signed by Juanjose Ruiz MD 05/04/2016 04:59 P
[2016-05-04 17:40] VITALS: BP 144/77
--- NOTE | 2016-05-04 21:44 | RO ---
DATE OF PROCEDURE: 05/04/2016 PREPROCEDURE DIAGNOSIS: Obstructing left ureteral stone. POSTPROCEDURE DIAGNOSIS: Obstructing left ureteral stone. PROCEDURE: Cystoscopy, left ureteroscopy with basket extraction of stone, left retrograde pyelogram with intraoperative interpretation of images, left ureteral stent placement. SURGEON: Dr. Sylvester Kenny SENIOR JAVA DEVELOPER: None. ANESTHESIA: General. OPERATIVE INDICATIONS: This is a 70-year-old female who was recently found to have an obstructing 6 mm proximal left ureteral stone. On subsequent imaging, the stone was noted to have migrated distally, and she was still having a lot of pain. It was recommended that she be brought to the operating room for the above procedure. DESCRIPTION OF PROCEDURE: The patient was brought to the operating room and general anesthesia was induced. Prophylaxis antibiotics were infused. She was then placed in the dorsal lithotomy position and prepped and draped in the usual sterile fashion. A rigid cystoscope was then inserted into the urethral meatus and advanced into the bladder. Once within the bladder, a wire was advanced up the left collecting system and secured to the drape to serve as a safety wire. Next, a short semi-rigid ureteroscope was advanced up the left collecting system and within the distal left ureter, the 6 mm stone was seen. The stone was then grasped with a basket and removed. I then went back in with the ureteroscope and no additional stones were seen. A retrograde pyelogram was performed and was notable for moderate to severe left hydroureteronephrosis. At this point, the ureteroscope was removed and the previously placed wire was utilized to advance a 6-Latvian x 22-32 cm JJ ureteral stent up into the left collecting system. The wire was then removed, and there were adequate curls of the stent in the left renal pelvis and in the bladder. The bladder was then emptied of all fluids and this marked the conclusion of the procedure. The patient was then taken out of the dorsal lithotomy position, awakened from anesthesia and transported to the recovery room in stable condition. ESTIMATED BLOOD LOSS: 0 mL. COMPLICATIONS: None. SPECIMENS: Left ureteral stone. PLAN: The patient will be discharged home and followup next week for stent removal. [facility]
== END | disposition home or self-care (01) ==
LOC: M SDC 13:23
PROVIDERS: ATTEND Urology
DX: N20.1 Calculus of ureter (principal); N13.30 Unspecified hydronephrosis; E78.4 Other hyperlipidemia; E66.9 Obesity, unspecified; K44.9 Diaphragmatic hernia without obstruction or gangrene; Z85.3 Personal history of malignant neoplasm of breast; Z79.899 Other long term (current) drug therapy
CPT/HCPCS: 52332; 52352; 74420; 82360; 88300; C2617; J0690; J2250; J2405; J2710; J2765; J3010; Q9961

== ENCOUNTER → 2016-06-12 | Outpatient (CLI) | payer MEDICARE ==
[~2016-06-12] MED LIST changes: -CONRAY-60 60% 50ML VIAL (Q9961) As Ordered ONE; -CONRAY-60 60% 50ML VIAL (Q9961) XX ONE; -GLYCOPYRROLATE INJ 0.2 MG/ML 2 ML VIAL As Ordered ONE; -LABETALOL HCL 100 MG/20 ML VIAL As Ordered ONE; -LIDOCAINE 2% INJ 100 MG/5 ML SDV (FOR ANES.) As Ordered ONE; -LR 1,000 ML IV SCH; -MEPERIDINE INJ 25 MG/ML VIAL (J2175) IV PRN; -METOCLOPRAMIDE INJ 10MG/2ML VIAL (J2765) As Ordered ONE; -METOCLOPRAMIDE INJ 10MG/2ML VIAL (J2765) IV PRN; -MIDAZOLAM INJ 2 MG/2 ML VIAL (J2250) As Ordered ONE; -NEOSTIGMINE 1MG/ML 5 ML SYRINGE (J2710) As Ordered ONE; -ONDANSETRON 4MG/2ML VIAL (J2405) As Ordered ONE; -ONDANSETRON 4MG/2ML VIAL (J2405) IV PRN; -PERCOCET 5MG/325MG TAB PO PRN; -PROPOFOL 200 MG/20 ML VIAL As Ordered ONE; -ROCURONIUM BROMIDE 50 MG/5 ML VIAL As Ordered ONE; -fentaNYL 100 MCG/2 ML INJECTION (J3010) As Ordered ONE; -fentaNYL 100 MCG/2 ML INJECTION (J3010) IV PRN
[2016-06-12 10:31] LABS: CALCIUM LEVEL 8.9 MG/DL (8.8-10.2); CREATININE FOR GFR 1.08 MG/DL (0.55-1.02); GLOMERULAR FILTRATION RATE 53.1 (>39); POTASSIUM SERUM 4.3 MEQ/L (3.5-5.1)
--- NOTE | 2016-06-12 11:38 | REP ---
MRI ABDOMEN WITH AND WITHOUT CONTRAST: TECHNIQUE: Coronal T1, T2, axial in-phase, out-phase, T1, T1 fat sat, T2, T2 fat sat, dynamic post IV Gadolinium axial T1 fat sat with the intravenous administration of 10 mL of Gadolinium. Correlation made with recent CT of the abdomen 04/27/2016 which showed a possible pancreatic cyst. The study is limited due to patient breathing motion. The pancreas demonstrates a focal area of fat invaginating into the superior body of the pancreas accounting for the CT abnormality. There is no pancreatic cyst or mass identified. There is no pancreatic duct dilatation. There is a cyst again seen in the dome of the liver approximately 1 cm in diameter. The spleen, adrenals and kidneys are unremarkable in appearance. The previously noted left hydronephrosis has resolved. I see no adenopathy or free fluid in the abdomen. IMPRESSION: No evidence of pancreatic cyst or mass. The abnormality seen on the recent CT scan represents fat invaginating into the superior pancreatic body. No suspicious abnormalities. Signed by Fredy Hill MD 06/12/2016 08:07 P
== END ==
LOC: M LAB 09:27 → M RAD 09:27
PROVIDERS: ATTEND Nurse Practitioner Family
DX: K86.9 Disease of pancreas, unspecified (principal); K76.89 Other specified diseases of liver
CPT/HCPCS: 36415; 74183; 80048; A9576

== ENCOUNTER → 2016-06-12 | Outpatient (REF) | payer MEDICARE | LOC: M SFHCPLAZ 08:53 | PROVIDERS: ATTEND Nurse Practitioner Family | DX: K86.2 Cyst of pancreas (principal) ==

== ENCOUNTER → 2016-09-05 | Outpatient (REF) | payer MEDICARE ==
[2016-09-05 12:32] LABS: ALBUMIN 3.5 GM/DL (3.2-5.2); ALBUMIN/GLOBULIN RATIO 1.03 (1.00-1.93); BILIRUBIN,TOTAL 0.4 MG/DL (0.2-1.0); CALCIUM LEVEL 8.7 MG/DL (8.8-10.2); CREATININE FOR GFR 1.04 MG/DL (0.55-1.02); GLOMERULAR FILTRATION RATE 55.5 (>39); POTASSIUM SERUM 4.5 MEQ/L (3.5-5.1); TOTAL PROTEIN 6.9 GM/DL (6.4-8.2)
== END ==
LOC: M SFHCPLAZ 09:10
PROVIDERS: ATTEND Nurse Practitioner Family
DX: I10 Essential (primary) hypertension (principal); E78.2 Mixed hyperlipidemia

== ENCOUNTER → 2016-12-24 | Outpatient (CLI) | payer MEDICARE ==
[~2016-12-24] MED LIST changes: +CIPR-249 PO; +PERC5TAB12 PO; -PERC5TAB6 PO; -PROA1AER INH; +PROAAER10 INH
--- NOTE | 2016-12-24 14:59 | REP ---
LEFT HAND SERIES: Four views. HISTORY: Contusion injury of the 4th and 5th metacarpal and 5th finger. FINDINGS: Four views of the left hand show some diffuse osteopenia. There is a slightly comminuted intra-articular fracture of the proximal phalanx. There is associated soft-tissue swelling. No other fracture is evident. 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 IMPRESSION: Slightly comminuted intra-articular fracture of the base the proximal phalanx at the 5th MCP joint. Signed by Juanjose Ruiz MD 12/24/2016 04:34 P
== END ==
LOC: M WUC 11:57
PROVIDERS: ATTEND Physician Assistant
DX: S62.617A Displaced fracture of proximal phalanx of left little finger, initial encounter for closed fracture (principal); X58.XXXA Exposure to other specified factors, initial encounter; Y92.9 Unspecified place or not applicable; Y99.9 Unspecified external cause status

== ENCOUNTER → 2017-01-03 | Outpatient (REF) | payer MEDICARE ==
[2017-01-03 14:11] LABS: ALBUMIN 3.7 GM/DL (3.2-5.2); ALBUMIN/GLOBULIN RATIO 1.12 (1.00-1.93); ALKALINE PHOSPHATASE 133 U/L (45-117); ALT/SGPT 24 U/L (12-78); ANION GAP 8 MEQ/L (8-16); AST/SGOT 19 U/L (15-37); BILIRUBIN,TOTAL 0.5 MG/DL (0.2-1.0); BLOOD UREA NITROGEN 15 MG/DL (7-18); CALCIUM LEVEL 9.1 MG/DL (8.8-10.2); CARBON DIOXIDE LEVEL 27 MEQ/L (21-32); CHLORIDE LEVEL 107 MEQ/L (98-107); CREATININE FOR GFR 0.94 MG/DL (0.55-1.02); FREE T4 1.31 NG/DL (0.76-1.46); GLOMERULAR FILTRATION RATE > 60.0 (>39); GLUCOSE, FASTING 101 MG/DL (83-110); POTASSIUM SERUM 4.3 MEQ/L (3.5-5.1); SODIUM LEVEL 142 MEQ/L (136-145)
== END ==
LOC: M SFHCPLAZ 08:55
PROVIDERS: ATTEND Nurse Practitioner Family
DX: I10 Essential (primary) hypertension (principal); E66.01 Morbid (severe) obesity due to excess calories; E55.9 Vitamin D deficiency, unspecified

== ENCOUNTER → 2017-02-11 | Outpatient (CLI) | payer MEDICARE ==
--- NOTE | 2017-02-11 13:33 | REP ---
Supine abdomen single AP view: Comparison is the CT of the abdomen pelvis of 02/07/2017. On the comparison CT there was a calculus in the distal left ureter just proximal to the urinary bladder. On the study today there is a calcification inferiorly in the pelvis on the left which could represent this same calculus, possibly in the distal ureter or possibly within the urinary bladder. There is a calcification superiorly in the pelvis on the left that is a phlebolith on the comparison CT. There is a calcification inferiorly in the pelvis on the right which on the comparison CT of a phlebolith. The bowel gas pattern is normal. There are is degenerative disc disease in the lumbar spine. Signed by Fredy Perez MD 02/11/2017 01:24 P
== END ==
LOC: M SMT 11:53
PROVIDERS: ATTEND Nurse Practitioner Family
DX: N13.2 Hydronephrosis with renal and ureteral calculous obstruction (principal)
CPT/HCPCS: 74000; 81001; 87086; G0463

== ENCOUNTER → 2017-03-11 | Outpatient (REF) | payer MEDICARE ==
[2017-03-11 13:41] LABS: RENAL EPITHELIAL CELLS 1 /HPF
== END ==
LOC: M SMT 13:00
PROVIDERS: ATTEND Nurse Practitioner Family
DX: N13.2 Hydronephrosis with renal and ureteral calculous obstruction (principal)
CPT/HCPCS: 81001; 87086; G0463

== ENCOUNTER → 2017-04-05 | Outpatient (CLI) | payer MEDICARE | LOC: M WHC 09:23 | DX: Z12.31 Encounter for screening mammogram for malignant neoplasm of breast (principal); Z01.419 Encounter for gynecological examination (general) (routine) without abnormal findings (principal); Z85.3 Personal history of malignant neoplasm of breast; Z92.21 Personal history of antineoplastic chemotherapy; Z92.3 Personal history of irradiation; Z12.12 Encounter for screening for malignant neoplasm of rectum | CPT/HCPCS: 82043; G0202 ==

== ENCOUNTER → 2017-11-29 | Outpatient (REF) | payer OTHER ==
[2017-11-29 11:20] LABS: TOTAL 25(OH) VITAMIN D 48.5 NG/ML (30.0-100.0)
[2017-11-29 14:36] LABS: ALBUMIN 3.6 GM/DL (3.2-5.2); ALBUMIN/GLOBULIN RATIO 1.06 (1.00-1.93); ALKALINE PHOSPHATASE 105 U/L (45-117); ALT/SGPT 28 U/L (12-78); ANION GAP 8 MEQ/L (8-16); AST/SGOT 17 U/L (7-37); BILIRUBIN,TOTAL 0.4 MG/DL (0.2-1.0); BLOOD UREA NITROGEN 15 MG/DL (7-18); CALCIUM LEVEL 9.2 MG/DL (8.8-10.2); CARBON DIOXIDE LEVEL 28 MEQ/L (21-32); CHLORIDE LEVEL 109 MEQ/L (98-107); CHOLESTEROL LEVEL 127 MG/DL (<200); CHOLESTEROL RISK RATIO 2.591 (<5); CREATININE FOR GFR 0.96 MG/DL (0.55-1.30); GLOMERULAR FILTRATION RATE > 60.0 (>39); GLUCOSE, FASTING 116 MG/DL (70-100); HDL CHOLESTEROL 49 MG/DL (>40); LDL CHOLESTEROL 54.6 MG/DL (<100); MAGNESIUM LEVEL 1.8 MG/DL (1.8-2.4); NON-HDL-C 78 MG/DL; POTASSIUM SERUM 4.4 MEQ/L (3.5-5.1); SODIUM LEVEL 145 MEQ/L (136-145); TRIGLYCERIDES LEVEL 117 MG/DL (<150)
== END ==
LOC: M SFHCPLAZ 08:02
DX: I10 Essential (primary) hypertension (principal); E78.2 Mixed hyperlipidemia; K21.9 Gastro-esophageal reflux disease without esophagitis; E55.9 Vitamin D deficiency, unspecified
CPT/HCPCS: 83735

== ENCOUNTER → 2018-03-06 | Outpatient (REF) | payer OTHER ==
[2018-03-06 12:51] LABS: ESTIMATED AVERAGE GLUCOSE 108 MG/DL (60-110); HEMOGLOBIN A1c 5.4 %
[2018-03-06 14:24] LABS: ALBUMIN 3.7 GM/DL (3.2-5.2); ALBUMIN/GLOBULIN RATIO 1.16 (1.00-1.93); ALKALINE PHOSPHATASE 94 U/L (45-117); ALT/SGPT 32 U/L (12-78); ANION GAP 11 MEQ/L (8-16); AST/SGOT 23 U/L (7-37); BILIRUBIN,TOTAL 0.6 MG/DL (0.2-1.0); BLOOD UREA NITROGEN 15 MG/DL (7-18); CALCIUM LEVEL 9.1 MG/DL (8.8-10.2); CARBON DIOXIDE LEVEL 30 MEQ/L (21-32); CHLORIDE LEVEL 101 MEQ/L (98-107); CREATININE FOR GFR 0.93 MG/DL (0.55-1.30); GLOMERULAR FILTRATION RATE > 60.0 (>39); GLUCOSE, FASTING 97 MG/DL (70-100); MALB URINE SIEMENS 40.7 MG/L; POTASSIUM SERUM 3.5 MEQ/L (3.5-5.1); SODIUM LEVEL 142 MEQ/L (136-145); TOTAL PROTEIN 6.9 GM/DL (6.4-8.2)
== END ==
LOC: M SFHCPLAZ 08:41
DX: R73.01 Impaired fasting glucose (principal); I10 Essential (primary) hypertension
CPT/HCPCS: 80053

== ENCOUNTER → 2018-04-24 | Outpatient (CLI) | payer OTHER ==
[~2018-04-24] MED LIST changes: -DRIS50002 PO; +DRIS50003 PO; +ZOFR4TAB14 PO; -ZOFR4TAB3 PO
--- NOTE | 2018-04-24 17:28 | REPMRS ---
Patient History The patient states she had a clinical breast exam in 04/2018. Patient has history of cancer in the left breast at age 57, had previous chest radiation therapy at age 57, and had previous chemotherapy at age 57. No known family history of cancer. Malignant excisional biopsy of the left breast, 2004. Radiation therapy of the left breast. Took tamoxifen for 5 years. Digital Woman Screen Mammo: April 24, 2018 - Exam #: [id number] Bilateral CC and MLO view(s) were taken. Technologist: Kristin Garcia, Technologist Prior study comparison: April 05, 2017, digital woman screen mammo performed at [facility]. November 25, 2015, digital woman screen mammo performed at [facility]. September 08, 2014, digital woman screen mammo performed at [facility]. FINDINGS: There are scattered fibroglandular densities. There are numerous surgical clips in the left axilla and mild scarring is seen in the upper outer quadrant, unchanged. There has been no change in the appearance of the mammogram from the prior studies. There is a mild amount of scattered fibroglandular density which is fairly symmetric. There is no interval development of dominant mass, architectural distortion, or clustered microcalcification suggestive of malignancy. 3-D tomosynthesis shows no additional findings. Assessment: BI-RADS/ACR category 2 mammogram. Benign finding(s). Recommendation Routine screening mammogram of both breasts in 1 year (for women over age 40). This mammogram was interpreted with the aid of an FDA-approved computer-aided dectection system. Electronically Signed By: Bladimir Ruiz MD 04/24/18 [id number]
== END ==
LOC: M WHC 08:01
PROVIDERS: ATTEND Nurse Practitioner Women's Health
DX: Z12.31 Encounter for screening mammogram for malignant neoplasm of breast (principal); Z85.3 Personal history of malignant neoplasm of breast

== ENCOUNTER 2018-06-16 22:07 | Emergency (ER) | payer OTHER ==
[~2018-06-16] VITALS: Ht 154.9 cm; Wt 91.8 kg
[~2018-06-16 22:07] MED LIST changes: -/WARF2TA PO; -ACET50TA PO; +COUM1TAB16 PO; +MAPA500T17 PO
[2018-06-16] MEDS ORDERED: OMEP40CA2 (22:20)
[2018-06-16] MEDS ORDERED: CARV25TA (22:20)
[2018-06-16 23:53] VITALS: BP 157/67
== END 2018-06-17 00:03 | disposition home or self-care (01) ==
LOC: M ED 22:07
DX: R03.0 Elevated blood-pressure reading, without diagnosis of hypertension (principal); K21.9 Gastro-esophageal reflux disease without esophagitis; F41.9 Anxiety disorder, unspecified; Z79.899 Other long term (current) drug therapy; Z88.8 Allergy status to other drugs, medicaments and biological substances

== ENCOUNTER → 2018-07-16 | Outpatient (REF) | payer OTHER ==
[~2018-07-16] MED LIST changes: +CARV25TA; +OMEP40CA2
[2018-07-16 11:31] LABS: ALBUMIN 3.3 GM/DL (3.2-5.2); ALT/SGPT 20 U/L (12-78); BILIRUBIN,TOTAL 0.6 MG/DL (0.2-1.0); BLOOD UREA NITROGEN 10 MG/DL (7-18); CALCIUM LEVEL 8.8 MG/DL (8.8-10.2); CARBON DIOXIDE LEVEL 30 MEQ/L (21-32); CHLORIDE LEVEL 109 MEQ/L (98-107); CHOLESTEROL LEVEL 134 MG/DL (<200); CHOLESTEROL RISK RATIO 2.576 (<5); CREATININE FOR GFR 0.83 MG/DL (0.55-1.30); GLOMERULAR FILTRATION RATE > 60.0 (>39); GLUCOSE, FASTING 93 MG/DL (70-100); HDL CHOLESTEROL 52 MG/DL (>40); LDL CHOLESTEROL 62 MG/DL (<100); NON-HDL-C 82 MG/DL; SODIUM LEVEL 144 MEQ/L (136-145); TOTAL PROTEIN 6.1 GM/DL (6.4-8.2); TRIGLYCERIDES LEVEL 98 MG/DL (<150)
== END ==
LOC: M SFHCPLAZ 08:36
PROVIDERS: ATTEND Nurse Practitioner Family
DX: E78.2 Mixed hyperlipidemia (principal); I11.9 Hypertensive heart disease without heart failure

== ENCOUNTER → 2018-07-16 | Outpatient (REF) | payer OTHER ==
[2018-07-16 11:26] LABS: ALBUMIN 3.4 GM/DL (3.2-5.2); BLOOD UREA NITROGEN 10 MG/DL (7-18); CALCIUM LEVEL 9.1 MG/DL (8.8-10.2); CARBON DIOXIDE LEVEL 30 MEQ/L (21-32); CHLORIDE LEVEL 109 MEQ/L (98-107); CREATININE FOR GFR 0.83 MG/DL (0.55-1.30); GLOMERULAR FILTRATION RATE > 60.0 (>39); GLUCOSE, FASTING 93 MG/DL (70-100); PHOSPHORUS LEVEL 3.5 MG/DL (2.5-4.9); POTASSIUM SERUM 4.1 MEQ/L (3.5-5.1); SODIUM LEVEL 145 MEQ/L (136-145)
== END ==
LOC: M LABDRAWP 08:38
PROVIDERS: ATTEND Physician Assistant
DX: I11.9 Hypertensive heart disease without heart failure (principal)

== ENCOUNTER 2019-04-27 00:46 | Emergency (ER) | payer OTHER ==
[~2019-04-27] VITALS: Ht 157.5 cm; Wt 85.0 kg
[~2019-04-27 00:46] MED LIST changes: -OMEP40CA2; +OMEP40CA97
[2019-04-27] MEDS ORDERED: AMLO5TAB6 (00:57)
[2019-04-27 01:26] LABS: BASO # 0.1 10^3/uL (0.0-0.2); BASO % 0.7 % (0.0-1.0); EOS # 0.1 10^3/uL (0.0-0.5); EOS % 1.6 % (0.0-3.0); HEMATOCRIT 41.8 % (36.0-47.0); HEMOGLOBIN 13.1 g/dl (12.0-15.5); LYMPH # 3.2 10^3/uL (1.5-5.0); LYMPH % 46.3 % (24.0-44.0); MEAN CORPUSCULAR HEMOGLOBIN 30.8 pg (27.0-33.0); MEAN CORPUSCULAR HGB CONC 31.3 g/dl (32.0-36.5); MEAN CORPUSCULAR VOLUME 98.1 fl (80.0-96.0); MONO # 0.5 10^3/uL (0.0-0.8); NEUTROPHILS # 3.1 10^3/uL (1.5-8.5); NEUTROPHILS % 44.3 % (36.0-66.0); PLATELET COUNT, AUTOMATED 151 10^3/uL (150-450); RED BLOOD COUNT 4.26 10^6/uL (4.00-5.40)
[2019-04-27] MEDS ORDERED: NS 1,000 ML IV ONE (01:45)
[2019-04-27] MEDS ORDERED: cloNIDine 0.1 MG TAB PO ONE ×2 (01:45→02:15)
[2019-04-27] MEDS ORDERED: METOCLOPRAMIDE INJ 10MG/2ML VIAL (J2765) IV ONE (01:45)
[2019-04-27 01:49] LABS: BLOOD UREA NITROGEN 18 MG/DL (7-18); CARBON DIOXIDE LEVEL 28 MEQ/L (21-32); CHLORIDE LEVEL 106 MEQ/L (98-107); CK-MB VALUE MASS < 1.0 NG/ML (<3.6); CPK CREATINE PHOSPHOKINASE 67 U/L (26-192); CREATININE FOR GFR 1.12 MG/DL (0.55-1.30); GLOMERULAR FILTRATION RATE 50.6 (>39); GLUCOSE, FASTING 107 MG/DL (70-100); MB/CK RELATIVE INDEX 1.49 (< OR =4); POTASSIUM SERUM 3.7 MEQ/L (3.5-5.1); SODIUM LEVEL 142 MEQ/L (136-145); TROPONIN I < 0.02 NG/ML (< 0.10)
[2019-04-27 01:58] VITALS: BP 198/89
--- NOTE | 2019-04-27 01:58 | REPVR ---
PROCEDURE INFORMATION: Exam: CT Head Without Contrast Exam date and time: 04/27/2019 1:38 AM Age: 73 years old Clinical indication: Pain; Headache; Additional info: Headache, high BP TECHNIQUE: Imaging protocol: Computed tomography of the head without contrast. Radiation optimization: All CT scans at this facility use at least one of these dose optimization techniques: automated exposure control; mA and/or kV adjustment per patient size (includes targeted exams where dose is matched to clinical indication); or iterative reconstruction. COMPARISON: CT Head without contrast 02/20/2013 6:44 PM FINDINGS: Brain: There is mild white matter lucency consistent with chronic microvascular disease.There is no evidence of infarct, caban-white matter differentiation is preserved. There is no hemorrhage or extra-axial collection. There is no mass. Ventricles: There is no hydrocephalus. Bones/joints: Unremarkable. No acute fracture. Sinuses: Visualized sinuses are unremarkable. No fluid levels. Mastoid air cells: Visualized mastoid air cells are well aerated. Soft tissues: Unremarkable. IMPRESSION: 1. There is chronic microvascular disease. 2. No acute intracranial lesion or injury and no change from prior scan. Electronically signed by: Cricket Perry On 04/27/2019 01:57:37 AM
--- NOTE | 2019-04-27 02:03 | REP ---
Clinical: Chest pain . Comparison: 04/27/2016 . Technique: PA and lateral. Findings: The mediastinum and cardiac silhouette are normal. The lung martinze are clear and without acute consolidation, effusion, or pneumothorax. The skeletal structures are intact and normal. Surgical clips in the left axillary region noted. Impression: 1. No acute cardiopulmonary process. Electronically Signed by Morgan Lorenzo MD 04/27/2019 01:53 A
[2019-04-27 02:15] VITALS: BP 156/64
--- NOTE | 2019-04-28 06:01 | ECGEPIP ---
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
== END 2019-04-27 02:34 | disposition home or self-care (01) ==
LOC: M ED 00:46
DX: I10 Essential (primary) hypertension (principal); I67.89 Other cerebrovascular disease; E78.5 Hyperlipidemia, unspecified; K21.9 Gastro-esophageal reflux disease without esophagitis; Z88.8 Allergy status to other drugs, medicaments and biological substances; Z79.899 Other long term (current) drug therapy
CPT/HCPCS: 36415; 70450; 71046; 80048; 82550; 82553; 84484; 85025; 93005; 93041; 94760; 96361; 96374; 99285; G0463; J2765

== ENCOUNTER → 2019-06-16 | Outpatient (CLI) | payer OTHER ==
[~2019-06-16] MED LIST changes: +AMLO5TAB6
--- NOTE | 2019-06-16 11:36 | REPMRS ---
Patient History The patient states she has not had a clinical breast exam in over a year. No known family history of cancer. Malignant excisional biopsy of the left breast, 2004. Radiation therapy of the left breast. Took tamoxifen for 5 years. Digital Woman Screen Mammo: June 16, 2019 - Exam #: [id number] Bilateral CC and MLO view(s) were taken. Technologist: Kristin Garcia, Technologist Prior study comparison: April 24, 2018, bilateral digital woman screen mammo performed at [facility]. April 05, 2017, digital woman screen mammo performed at [facility]. November 25, 2015, digital woman screen mammo performed at [facility]. FINDINGS: There are scattered fibroglandular densities. Multiple surgical clips are again noted in the left axillary soft tissues. There has been no change in the appearance of the mammogram from the prior studies. There is a mild amount of scattered fibroglandular density which is fairly symmetric. There is no interval development of dominant mass, architectural distortion, or grouped microcalcification suggestive of malignancy. 3-D tomosynthesis shows no additional findings. Assessment: BI-RADS/ACR category 2 mammogram. Benign Findings. Recommendation Routine screening mammogram of both breasts in 1 year (for women over age 40). This mammogram was interpreted with the aid of an FDA-approved computer-aided dectection system. Electronically Signed By: Bladimir Ruiz MD 06/16/19 [id number]
== END ==
LOC: M WHC 09:29
PROVIDERS: ATTEND Nurse Practitioner Women's Health
DX: Z12.31 Encounter for screening mammogram for malignant neoplasm of breast (principal); Z85.3 Personal history of malignant neoplasm of breast; Z92.29 Personal history of other drug therapy

== ENCOUNTER → 2019-07-24 | Outpatient (REF) | payer OTHER ==
[2019-07-24 12:31] LABS: ALBUMIN 3.4 GM/DL (3.2-5.2); ALT/SGPT 13 U/L (12-78); BILIRUBIN,TOTAL 0.6 MG/DL (0.2-1.0); BLOOD UREA NITROGEN 16 MG/DL (7-18); CALCIUM LEVEL 9.3 MG/DL (8.8-10.2); CARBON DIOXIDE LEVEL 31 MEQ/L (21-32); CHLORIDE LEVEL 106 MEQ/L (98-107); CHOLESTEROL LEVEL 156 MG/DL (<200); CREATININE FOR GFR 0.87 MG/DL (0.55-1.30); GLOMERULAR FILTRATION RATE > 60.0 (>39); GLUCOSE, FASTING 96 MG/DL (70-100); HDL CHOLESTEROL 60 MG/DL (>40); LDL CHOLESTEROL 67 MG/DL (<100); NON-HDL-C 96 MG/DL; SODIUM LEVEL 141 MEQ/L (136-145); TRIGLYCERIDES LEVEL 143 MG/DL (<150)
[2019-07-24 12:33] LABS: TOTAL 25(OH) VITAMIN D 29.5 NG/ML (30.0-100.0)
== END ==
LOC: M PLALAB 09:22
PROVIDERS: ATTEND Nurse Practitioner Family
DX: I10 Essential (primary) hypertension (principal); E78.2 Mixed hyperlipidemia; E55.9 Vitamin D deficiency, unspecified

== ENCOUNTER → 2019-07-30 | Outpatient (REF) | payer OTHER ==
[2019-07-30 13:18] LABS: MALB URINE SIEMENS 21.9 MG/L; MAU/CREAT RATIO 15.1 MCG/MG (0.0-30.0)
== END ==
LOC: M SFHCPLAZ 11:47
PROVIDERS: ATTEND Nurse Practitioner Family
DX: I10 Essential (primary) hypertension (principal)
CPT/HCPCS: 82043; G0463

== ENCOUNTER → 2019-10-06 | Outpatient (CLI) | payer OTHER ==
[2019-10-06 14:09] LABS: ALBUMIN 3.9 GM/DL (3.2-5.2); BILIRUBIN,TOTAL 0.6 MG/DL (0.2-1.0); CALCIUM LEVEL 9.4 MG/DL (8.8-10.2); CREATININE FOR GFR 1.03 MG/DL (0.55-1.30); GLOMERULAR FILTRATION RATE 55.6 (>39); POTASSIUM SERUM 4.2 MEQ/L (3.5-5.1); TOTAL 25(OH) VITAMIN D 41.9 NG/ML (30.0-100.0); TOTAL PROTEIN 7.3 GM/DL (6.4-8.2)
== END ==
LOC: M PLALAB 10:41
PROVIDERS: ATTEND Nurse Practitioner Family
DX: I10 Essential (primary) hypertension (principal); E55.9 Vitamin D deficiency, unspecified

== ENCOUNTER → 2020-01-07 | Outpatient (REF) | payer OTHER ==
[~2020-01-07] MED LIST changes: +AMLO1TAB24; -AMLO5TAB6
[2020-01-07 14:45] LABS: ALBUMIN 3.5 GM/DL (3.2-5.2); BILIRUBIN,TOTAL 0.5 MG/DL (0.2-1.0); CALCIUM LEVEL 9.6 MG/DL (8.8-10.2); CREATININE FOR GFR 1.12 MG/DL (0.55-1.30); GLOMERULAR FILTRATION RATE 50.5 (>39); POTASSIUM SERUM 4.3 MEQ/L (3.5-5.1); TOTAL 25(OH) VITAMIN D 39.4 NG/ML (30.0-100.0); TOTAL PROTEIN 6.9 GM/DL (6.4-8.2)
== END ==
LOC: M PLALAB 10:17
PROVIDERS: ATTEND Nurse Practitioner Family
DX: I10 Essential (primary) hypertension (principal); E55.9 Vitamin D deficiency, unspecified; Z79.899 Other long term (current) drug therapy

== ENCOUNTER → 2020-04-20 | Outpatient (CLI) | payer SELFPAY | LOC: M LABSMTC 13:39 | PROVIDERS: ATTEND Pediatrics | DX: Z11.52 Encounter for screening for COVID-19 (principal) ==

== ENCOUNTER → 2020-08-04 | Outpatient (REF) | payer OTHER ==
[2020-08-04 12:22] LABS: MAU/CREAT RATIO 18.9 MCG/MG (0.0-30.0)
== END ==
LOC: M SFHCPLAZ 10:07
PROVIDERS: ATTEND Nurse Practitioner Family
DX: I10 Essential (primary) hypertension (principal)
CPT/HCPCS: 82043; G0463

== ENCOUNTER → 2020-08-08 | Outpatient (REF) | payer OTHER ==
[2020-08-08 14:42] LABS: APPEARANCE, URINE CLOUDY (CLEAR); BACTERIA, URINE AUTO 2+ (NEGATIVE); BILIRUBIN, URINE AUTO NEGATIVE (NEGATIVE); BLOOD, URINE BLOOD 1+ (NEGATIVE); COLOR, URINE AMBER (YELLOW); GLUCOSE, URINE (UA) AUTO NEGATIVE (NEGATIVE); KETONE, URINE AUTO NEGATIVE (NEGATIVE); LEUKOCYTE ESTERASE, URINE AUTO 3+ (NEGATIVE); MUCUS, URINE SMALL (NEGATIVE); NITRITE, URINE AUTO NEGATIVE (NEGATIVE); PROTEIN, URINE AUTO 1+ mg/dL (NEGATIVE); RBC, URINE AUTO 9 /HPF (0-3); SPECIFIC GRAVITY URINE AUTO 1.018 (1.002-1.035); SQUAMOUS EPITHELIAL CELL UR AU 10 /HPF (0-6); TRANSITIONAL EPITHELIAL AUTO 2 /HPF; UROBILINOGEN, URINE AUTO 0.2 mg/dL (0.0-2.0); WBC, URINE AUTO TNTC /HPF (0-3)
== END ==
LOC: M SFHCPLAZ 13:54
PROVIDERS: ATTEND Physician Assistant
DX: R35.0 Frequency of micturition (principal); H61.21 Impacted cerumen, right ear

== ENCOUNTER → 2020-09-28 | Outpatient (CLI) | payer OTHER ==
[~2020-09-28] MED LIST changes: -AMLO1TAB24; +AMLO1TAB24 PO; -CARV25TA; +CARV25TA PO; +FAMO40TA3 PO; +FURO20TA2; +MECL-136; +OMEP40CA4; -OMEP40CA97; +PANT40TA29 PO
[2020-09-28 16:06] LABS: BASO # 0.1 10^3/uL (0.0-0.2); BASO % 0.6 % (0.0-1.0); EOS # 0.1 10^3/uL (0.0-0.5); HEMATOCRIT 43.9 % (36.0-47.0); HEMOGLOBIN 14.1 g/dl (12.0-15.5); LYMPH # 3.1 10^3/uL (1.5-5.0); LYMPH % 28.9 % (24.0-44.0); MEAN CORPUSCULAR HEMOGLOBIN 30.8 pg (27.0-33.0); MEAN CORPUSCULAR HGB CONC 32.1 g/dl (32.0-36.5); MEAN CORPUSCULAR VOLUME 95.9 fl (80.0-96.0); MONO # 0.8 10^3/uL (0.0-0.8); MONO % 7.6 % (2.0-8.0); NEUTROPHILS # 6.5 10^3/uL (1.5-8.5); PLATELET COUNT, AUTOMATED 213 10^3/uL (150-450); RED BLOOD COUNT 4.58 10^6/uL (4.00-5.40); WHITE BLOOD COUNT 10.6 10^3/uL (4.0-10.0)
[2020-09-28 16:41] LABS: ALBUMIN 3.4 GM/DL (3.2-5.2); BILIRUBIN,TOTAL 0.6 MG/DL (0.2-1.0); CALCIUM LEVEL 8.4 MG/DL (8.8-10.2); CREATININE FOR GFR 1.26 MG/DL (0.55-1.30); POTASSIUM SERUM 3.9 MEQ/L (3.5-5.1); THYROID STIMULATING HORMONE 1.44 uIU/ML (0.358-3.740); TOTAL PROTEIN 6.7 GM/DL (6.4-8.2)
== END ==
LOC: M WUC 14:03
PROVIDERS: ATTEND Physician Assistant
DX: R53.83 Other fatigue (principal)

== ENCOUNTER → 2020-09-28 | Outpatient (REF) | payer OTHER | LOC: M LAB REF 15:50 | PROVIDERS: ATTEND Physician Assistant | DX: R53.83 Other fatigue (principal) ==

== ENCOUNTER → 2020-10-01 | Outpatient (CLI) | payer OTHER | LOC: M LABSMTC 09:55 | PROVIDERS: ATTEND Surgery | DX: Z20.828 Contact with and (suspected) exposure to other viral communicable diseases (principal); Z11.59 Encounter for screening for other viral diseases ==

== ENCOUNTER 2020-10-06 09:58 | Day surgery (SDC) | payer OTHER ==
[~2020-10-06] VITALS: Ht 154.9 cm; Wt 93.4 kg
[~2020-10-06 09:58] MED LIST changes: +NS 1,000 ML IV ONE
[2020-10-06] MEDS ORDERED: fentaNYL 100 MCG/2 ML INJECTION (J3010) As Ordered ONE (10:37)
[2020-10-06] MEDS ORDERED: propofoL 200 MG/20 ML VIAL As Ordered ONE (10:40)
--- NOTE | 2020-10-06 10:58 | ROOR ---
Patient Name: Micki Coffey Procedure Date: 10/06/2020 10:42 AM Date of : 1945 Age: 75 Room: [facility] Gender: Female Note Status: Finalized Procedure: Upper GI endoscopy Indications: Suspected esophageal reflux Providers: Isai Villar Jr, MD Referring MD: Jennifer Escobar NP, Carlos SMITH MD Requesting Provider: Medicines: Propofol per Anesthesia Complications: No immediate complications. Procedure: Pre-Anesthesia Assessment: - Prior to the procedure, a History and Physical was performed, and patient medications and allergies were reviewed. The patient is competent. The risks and benefits of the procedure and the sedation options and risks were discussed with the patient. All questions were answered and informed consent was obtained. Patient identification and proposed procedure were verified by the physician and the nurse in the pre-procedure area and in the procedure room. Mental Status Examination: alert and oriented. Airway Examination: normal oropharyngeal airway and neck mobility. Respiratory Examination: clear to auscultation. CV Examination: normal. ASA Grade Assessment: II - A patient with mild systemic disease. After reviewing the risks and benefits, the patient was deemed in satisfactory condition to undergo the procedure. The anesthesia plan was to use moderate sedation / analgesia (conscious sedation). Immediately prior to administration of medications, the patient was re-assessed for adequacy to receive sedatives. The heart rate, respiratory rate, oxygen saturations, blood pressure, adequacy of pulmonary ventilation, and response to care were monitored throughout the procedure. The physical status of the patient was re-assessed after the procedure. The Endoscope was introduced through the mouth, and advanced to the second part of duodenum. The patient tolerated the procedure well. The upper GI endoscopy was accomplished without difficulty. Findings: The upper third of the esophagus and middle third of the esophagus were normal. LA Grade B (one or more mucosal breaks greater than 5 mm, not extending between the tops of two mucosal folds) esophagitis with bleeding was found at the gastroesophageal junction. A medium-sized hiatal hernia was present. 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 This was characterized by edema. The duodenal bulb, first portion of the duodenum and second portion of the duodenum were normal. Impression: - Normal upper third of esophagus and middle third of esophagus. - LA Grade B reflux esophagitis. - Medium-sized hiatal hernia. 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 - Normal duodenal bulb, first portion of the duodenum and second portion of the duodenum. - No specimens collected. Recommendation: - Discharge patient to home (ambulatory). - Return to my office as previously scheduled. Procedure Code(s): --- Professional --- 68890, Esophagogastroduodenoscopy, flexible, transoral; diagnostic, including collection of specimen(s) by brushing or washing, when performed (separate procedure) Diagnosis Code(s): --- Professional --- K21.0, Gastro-esophageal reflux disease with esophagitis K44.9, Diaphragmatic hernia without obstruction or gangrene Z98.84, Bariatric surgery status CPT copyright 2019 [employer]. All rights reserved. The codes documented in this report are preliminary and upon patient accounting representative review may be revised to meet current compliance requirements. Isai Villar MD Isai Villar Jr, MD 10/06/2020 10:58:38 AM Electronically signed by Isai Villar Jr, MD Number of Addenda: 0 Note Initiated On: 10/06/2020 10:42 AM Estimated Blood Loss: Estimated blood loss: none.
[2020-10-06 11:15] VITALS: BP 109/62
== END 2020-10-06 11:23 | disposition home or self-care (01) ==
LOC: M OPP 09:58
PROVIDERS: ATTEND Surgery
DX: K21.00 Gastro-esophageal reflux disease with esophagitis, without bleeding (principal); K44.9 Diaphragmatic hernia without obstruction or gangrene; Z98.84 Bariatric surgery status; Z79.899 Other long term (current) drug therapy; Z88.8 Allergy status to other drugs, medicaments and biological substances; Z85.3 Personal history of malignant neoplasm of breast; Z92.3 Personal history of irradiation; Z92.21 Personal history of antineoplastic chemotherapy
CPT/HCPCS: 43235; J3010

== ENCOUNTER → 2020-11-09 | Outpatient (CLI) | payer OTHER ==
[~2020-11-09] MED LIST changes: -NS 1,000 ML IV ONE
--- NOTE | 2020-11-09 16:20 | REPMRS ---
Patient History The patient states she had a clinical breast exam in 11/2020. Patient has history of cancer in the left breast at age 57, had previous chest radiation therapy at age 57, and had previous chemotherapy at age 57. No known family history of cancer. Malignant excisional biopsy of the left breast, 2004. Radiation therapy of the left breast. Took tamoxifen for 5 years. Patient states no breast complaints today. Patient has signed MRS History Sheet. Digital Woman Screen Mammo: November 09, 2020 - Exam #: [id number] Bilateral CC and MLO view(s) were taken. Technologist: Kristin Garcia, Technologist Prior study comparison: June 16, 2019, bilateral digital woman screen mammo performed at [facility]. April 24, 2018, bilateral digital woman screen mammo performed at [facility]. FINDINGS: There are scattered fibroglandular densities. Screening. Digital screening (2D) mammography was performed bilaterally in the CC and MLO projections. Additionally, breast tomosynthesis (3D mammography) was performed bilaterally in the CC and MLO projections. Todays exam was compared to the prior exam/exams. By history, the patient has no complaints of a palpable breast abnormality or other significant breast complaints. The breasts are unchanged in size and shape. There are no rigo-soft tissue densities or spiculated masses. There is no internal architectural distortion. Once again, stable benign appearing calcifications are seen.There are no suspicious rigo-calcific clusters. Skin thickening or nipple retraction is not present. IMPRESSION: BI-RADS Category 2- Benign Findings. There is no evidence of malignant alteration of the breasts. Followup examination recommended in one year. The Volpara volumetric breast density category is B, there are scattered areas of fibroglandular densities. This mammogram was read with the assistance of [employer],an FDA approved computer aided detection system for mammography. Negative x-ray reports should not delay surgical consultation if a dominant or clinically suspicious mass is present. Not all breast cancers can be identified by mammography. Therefore, we recommend that you continue to perform regular breast self-examination and physical examination and then promptly contact your physician of any concerns or changes. Adenosis and dense breasts may obscure an underlying neoplasm. Assessment: BI-RADS/ACR category 2 mammogram. Benign Findings. Recommendation Routine screening mammogram of both breasts in 1 year. Electronically Signed By: Yousuf Cross DO 11/09/20 [id number]
== END ==
LOC: M WHC 15:00
PROVIDERS: ATTEND Nurse Practitioner Women's Health
DX: Z01.419 Encounter for gynecological examination (general) (routine) without abnormal findings (principal); Z12.31 Encounter for screening mammogram for malignant neoplasm of breast; Z85.3 Personal history of malignant neoplasm of breast; Z92.3 Personal history of irradiation; Z92.21 Personal history of antineoplastic chemotherapy; Z92.29 Personal history of other drug therapy; R92.1 Mammographic calcification found on diagnostic imaging of breast
CPT/HCPCS: 77063; 77067; G0101

== ENCOUNTER → 2021-01-23 | Outpatient (CLI) | payer OTHER ==
--- NOTE | 2021-01-23 13:53 | REP ---
INDICATION: ABD PAIN, GERD. COMPARISON: None. TECHNIQUE/RADIOTRACER AND DOSE: Following the intravenous administration of 1.10 mCi technetium 99 M sulfur colloid in 2 scrambled eggs and 6 oz of water, multiple images of the upper abdomen are performed in the anterior and posterior projections for 90 minutes. FINDINGS: The gastric activity is measured. At the end of 90 minutes 17% of the ingested activity has emptied from the stomach. The T1/2 is 286 minutes which is significantly elevated. IMPRESSION: Significantly delayed gastric emptying. <Electronically signed by Fredy Hill > 01/23/21 [id number]
== END ==
LOC: M RAD 11:28
PROVIDERS: ATTEND Surgery
DX: K21.9 Gastro-esophageal reflux disease without esophagitis (principal); R10.84 Generalized abdominal pain
CPT/HCPCS: 78264; A9541

== ENCOUNTER → 2021-03-07 | Outpatient (CLI) | payer OTHER ==
[~2021-03-07] MED LIST changes: +ELIQ5TAB PO; +FURO20TA2 PO; +MECL25CH45 PO
--- NOTE | 2021-03-07 11:00 | REP ---
INDICATION: OTH SYMPTOMS AND SIGNS INVOLVING THE MUSCULOSKELET COMPARISON: 1006 TECHNIQUE: AP, lateral, flexion/extension, bilateral oblique, and coned-down views. FINDINGS: Advanced multilevel degenerative changes include endplate sclerosis/heterogeneity, disc space narrowing, osteophytosis, and facet arthropathy. Focal chronic anterolisthesis of approximately 7 mm noted at the L4-5 level. There is no evidence for acute fracture/compression injury or acute subluxation. IMPRESSION: Advanced multilevel degenerative spondylosis. <Electronically signed by Morgan Lorenzo > 03/07/21 [id number]
[2021-03-07 12:13] LABS: BASO # 0.1 10^3/uL (0.0-0.2); BASO % 0.9 % (0.0-1.0); EOS # 0.2 10^3/uL (0.0-0.5); EOS % 2.9 % (0.0-3.0); HEMATOCRIT 40.1 % (36.0-47.0); HEMOGLOBIN 12.7 g/dl (12.0-15.5); LYMPH # 2.2 10^3/uL (1.5-5.0); LYMPH % 32.5 % (24.0-44.0); MEAN CORPUSCULAR HEMOGLOBIN 30.5 pg (27.0-33.0); MEAN CORPUSCULAR HGB CONC 31.7 g/dl (32.0-36.5); MEAN CORPUSCULAR VOLUME 96.4 fl (80.0-96.0); MONO # 0.5 10^3/uL (0.0-0.8); MONO % 7.6 % (2.0-8.0); NEUTROPHILS # 3.8 10^3/uL (1.5-8.5); NEUTROPHILS % 55.8 % (36.0-66.0); PLATELET COUNT, AUTOMATED 166 10^3/uL (150-450); RED BLOOD COUNT 4.16 10^6/uL (4.00-5.40); WHITE BLOOD COUNT 6.9 10^3/uL (4.0-10.0)
[2021-03-07 12:37] LABS: ALBUMIN 3.5 GM/DL (3.2-5.2); BILIRUBIN,TOTAL 0.6 MG/DL (0.2-1.0); CALCIUM LEVEL 8.7 MG/DL (8.8-10.2); CHOLESTEROL RISK RATIO 1.826 (<5); CREATININE FOR GFR 1.06 MG/DL (0.55-1.30); FREE T4 1.39 NG/DL (0.76-1.46); GLOMERULAR FILTRATION RATE 53.7 (>39); POTASSIUM SERUM 4.3 MEQ/L (3.5-5.1); THYROID STIMULATING HORMONE 1.52 uIU/ML (0.358-3.740); TOTAL PROTEIN 6.7 GM/DL (6.4-8.2)
[2021-03-07 12:42] LABS: HEMOGLOBIN A1c 5.7 %
[2021-03-07 14:02] LABS: PTH INTACT 79.4 PG/ML (18.5-88.0); TOTAL 25(OH) VITAMIN D 27.3 NG/ML (30.0-100.0)
== END ==
LOC: M PLAIMG 09:41
PROVIDERS: ATTEND Physician Assistant Medical
DX: M47.816 Spondylosis without myelopathy or radiculopathy, lumbar region (principal); K21.9 Gastro-esophageal reflux disease without esophagitis; E55.9 Vitamin D deficiency, unspecified; E66.9 Obesity, unspecified; I10 Essential (primary) hypertension; E78.2 Mixed hyperlipidemia; R73.03 Prediabetes; R29.898 Other symptoms and signs involving the musculoskeletal system
CPT/HCPCS: 36415; 72114; 80053; 80061; 82306; 83036; 83970; 84439; 84443; 85025; G0463

== ENCOUNTER 2021-03-08 17:04 | Emergency (ER) | payer OTHER ==
[~2021-03-08 17:04] MED LIST changes: -ELIQ5TAB PO; -FURO20TA2 PO; -MECL25CH45 PO
[2021-03-08] MEDS ORDERED: ASPIRIN 81 MG CHEW TABLET PO ONE (18:05)
[2021-03-08] MEDS ORDERED: METOPROLOL 5 MG/5 ML VIAL IV SCH (18:05)
[2021-03-08] MEDS ORDERED: METOPROLOL TART 25 MG TABLET PO ONE (19:00)
[2021-03-08 19:26] VITALS: BP 164/77
[2021-03-08] MEDS ORDERED: FURO20TA2 PO (19:33)
[2021-03-08] MEDS ORDERED: MECL25CH45 PO (19:33)
[2021-03-08 20:42] LABS: BASO % 0.6 % (0.0-1.0); EOS # 0.2 10^3/uL (0.0-0.5); EOS % 2.1 % (0.0-3.0); HEMATOCRIT 38.7 % (36.0-47.0); HEMOGLOBIN 12.2 g/dl (12.0-15.5); LYMPH # 3.2 10^3/uL (1.5-5.0); LYMPH % 45.3 % (24.0-44.0); MEAN CORPUSCULAR HEMOGLOBIN 30.7 pg (27.0-33.0); MEAN CORPUSCULAR HGB CONC 31.5 g/dl (32.0-36.5); MEAN CORPUSCULAR VOLUME 97.5 fl (80.0-96.0); MONO # 0.6 10^3/uL (0.0-0.8); MONO % 7.8 % (2.0-8.0); NEUTROPHILS # 3.1 10^3/uL (1.5-8.5); NEUTROPHILS % 44.1 % (36.0-66.0); PLATELET COUNT, AUTOMATED 166 10^3/uL (150-450); RED BLOOD COUNT 3.97 10^6/uL (4.00-5.40); WHITE BLOOD COUNT 7.1 10^3/uL (4.0-10.0)
[2021-03-08 20:54] LABS: INR 1.05; PROTHROMBIN TIME 14.1 SECONDS (12.7-14.5)
[2021-03-08 21:09] LABS: CK-MB VALUE MASS < 1.0 NG/ML (<3.6); CPK CREATINE PHOSPHOKINASE 89 U/L (26-192); MB/CK RELATIVE INDEX 1.12 (< OR =4)
[2021-03-08 21:14] LABS: ALBUMIN 3.3 GM/DL (3.2-5.2); BILIRUBIN,DIRECT 0.2 MG/DL (0.0-0.2); BILIRUBIN,TOTAL 0.4 MG/DL (0.2-1.0); CREATININE FOR GFR 1.01 MG/DL (0.55-1.30); FREE T4 1.42 NG/DL (0.76-1.46); GLOMERULAR FILTRATION RATE 56.7 (>39); POTASSIUM SERUM 4.1 MEQ/L (3.5-5.1); THYROID STIMULATING HORMONE 1.55 uIU/ML (0.358-3.740); TOTAL PROTEIN 6.4 GM/DL (6.4-8.2)
[2021-03-08] MEDS ORDERED: APIXABAN 5 MG TAB (ELIQUIS) PO ONE (21:25)
[2021-03-08] MEDS ORDERED: ELIQ5TAB PO (21:28)
[2021-03-08 23:15] VITALS: BP 128/66
== END 2021-03-08 23:33 | disposition home or self-care (01) ==
LOC: M ED 17:04 → EDBD 17:04 → M ED 23:33
DX: I48.91 Unspecified atrial fibrillation (principal); R42 Dizziness and giddiness; E78.5 Hyperlipidemia, unspecified; I10 Essential (primary) hypertension; Z86.79 Personal history of other diseases of the circulatory system; Z98.84 Bariatric surgery status; Z88.8 Allergy status to other drugs, medicaments and biological substances; Z79.01 Long term (current) use of anticoagulants

== ENCOUNTER → 2021-08-10 | Outpatient (CLI) | payer OTHER ==
[~2021-08-10] MED LIST changes: +ELIQ5TAB PO; +FURO20TA2 PO; +MECL25CH45 PO
[2021-08-10 15:44] LABS: BASO # 0.1 10^3/uL (0.0-0.2); BASO % 0.8 % (0.0-1.0); EOS # 0.1 10^3/uL (0.0-0.5); EOS % 1.5 % (0.0-3.0); HEMATOCRIT 40.2 % (36.0-47.0); HEMOGLOBIN 12.7 g/dl (12.0-15.5); LYMPH # 2.4 10^3/uL (1.5-5.0); MEAN CORPUSCULAR HEMOGLOBIN 30.5 pg (27.0-33.0); MEAN CORPUSCULAR HGB CONC 31.6 g/dl (32.0-36.5); MEAN CORPUSCULAR VOLUME 96.6 fl (80.0-96.0); MONO # 0.3 10^3/uL (0.0-0.8); MONO % 5.5 % (2.0-8.0); NEUTROPHILS # 3.1 10^3/uL (1.5-8.5); PLATELET COUNT, AUTOMATED 173 10^3/uL (150-450); RED BLOOD COUNT 4.16 10^6/uL (4.00-5.40)
[2021-08-10 16:47] LABS: HEMOGLOBIN A1c 5.5 %
[2021-08-10 17:15] LABS: ALBUMIN 3.6 GM/DL (3.2-5.2); BILIRUBIN,TOTAL 0.6 MG/DL (0.2-1.0); CALCIUM LEVEL 9.7 MG/DL (8.8-10.2); CREATININE FOR GFR 0.98 MG/DL (0.55-1.30); GLOMERULAR FILTRATION RATE 58.6 (>39); POTASSIUM SERUM 4.1 MEQ/L (3.5-5.1); TOTAL PROTEIN 6.9 GM/DL (6.4-8.2)
[2021-08-10 17:21] LABS: TOTAL 25(OH) VITAMIN D 25.8 NG/ML (30.0-100.0)
== END ==
LOC: M PLALAB 13:11
PROVIDERS: ATTEND Physician Assistant
DX: R53.81 Other malaise (principal)

== ENCOUNTER → 2021-09-13 | Outpatient (REF) | payer OTHER | LOC: M SFHCPLAZ 12:59 | PROVIDERS: ATTEND Physician Assistant | DX: R35.0 Frequency of micturition (principal) ==

== ENCOUNTER → 2021-10-06 | Outpatient (CLI) | payer OTHER ==
[2021-10-06 10:45] LABS: BASO # 0.1 10^3/uL (0.0-0.2); BASO % 0.9 % (0.0-1.0); EOS # 0.3 10^3/uL (0.0-0.5); HEMATOCRIT 34.6 % (36.0-47.0); HEMOGLOBIN 10.9 g/dl (12.0-15.5); LYMPH # 1.8 10^3/uL (1.5-5.0); LYMPH % 26.8 % (24.0-44.0); MEAN CORPUSCULAR HEMOGLOBIN 30.9 pg (27.0-33.0); MEAN CORPUSCULAR HGB CONC 31.5 g/dl (32.0-36.5); MONO # 0.5 10^3/uL (0.0-0.8); MONO % 6.8 % (2.0-8.0); NEUTROPHILS # 4.1 10^3/uL (1.5-8.5); NEUTROPHILS % 60.2 % (36.0-66.0); PLATELET COUNT, AUTOMATED 263 10^3/uL (150-450); RED BLOOD COUNT 3.53 10^6/uL (4.00-5.40); WHITE BLOOD COUNT 6.8 10^3/uL (4.0-10.0)
[2021-10-06 11:29] LABS: ALBUMIN 3.5 GM/DL (3.2-5.2); ALT/SGPT 26 U/L (12-78); BILIRUBIN,TOTAL 1.2 MG/DL (0.2-1.0); BLOOD UREA NITROGEN 12 MG/DL (7-18); CALCIUM LEVEL 9.3 MG/DL (8.8-10.2); CARBON DIOXIDE LEVEL 31 MEQ/L (21-32); CHLORIDE LEVEL 104 MEQ/L (98-107); GLOMERULAR FILTRATION RATE > 60.0 (>39); GLUCOSE, FASTING 96 MG/DL (70-100); POTASSIUM SERUM 3.7 MEQ/L (3.5-5.1); SODIUM LEVEL 142 MEQ/L (136-145); TOTAL PROTEIN 5.9 GM/DL (6.4-8.2)
== END ==
LOC: M PLALAB 08:38
PROVIDERS: ATTEND Physician Assistant
DX: I11.9 Hypertensive heart disease without heart failure (principal)

== ENCOUNTER → 2021-10-12 | Outpatient (CLI) | payer OTHER ==
[2021-10-12 14:31] LABS: HEMOGLOBIN 11.9 g/dl (12.0-15.5); MEAN CORPUSCULAR HEMOGLOBIN 31.6 pg (27.0-33.0); MEAN CORPUSCULAR HGB CONC 32.2 g/dl (32.0-36.5); MEAN CORPUSCULAR VOLUME 98.1 fl (80.0-96.0); PLATELET COUNT, AUTOMATED 230 10^3/uL (150-450); RED BLOOD COUNT 3.77 10^6/uL (4.00-5.40); WHITE BLOOD COUNT 6.5 10^3/uL (4.0-10.0)
[2021-10-12 14:51] LABS: BLOOD UREA NITROGEN 15 MG/DL (7-18); CALCIUM LEVEL 9.3 MG/DL (8.8-10.2); CARBON DIOXIDE LEVEL 28 MEQ/L (21-32); CHLORIDE LEVEL 106 MEQ/L (98-107); CREATININE FOR GFR 0.87 MG/DL (0.55-1.30); GLOMERULAR FILTRATION RATE > 60.0 (>39); GLUCOSE, FASTING 93 MG/DL (70-100); POTASSIUM SERUM 3.5 MEQ/L (3.5-5.1); SODIUM LEVEL 143 MEQ/L (136-145)
== END ==
LOC: M LAB 13:22
PROVIDERS: ATTEND Physician Assistant
DX: R42 Dizziness and giddiness (principal)

== ENCOUNTER → 2021-11-28 | Outpatient (CLI) | payer OTHER | LOC: M WHC 16:21 | PROVIDERS: ATTEND Physician Assistant Medical | DX: Z12.31 Encounter for screening mammogram for malignant neoplasm of breast (principal) ==

== ENCOUNTER → 2021-12-22 | Outpatient (CLI) | payer OTHER ==
[2021-12-22 15:36] LABS: BASO % 0.5 % (0.0-1.0); EOS # 0.1 10^3/uL (0.0-0.5); EOS % 1.1 % (0.0-3.0); HEMATOCRIT 38.7 % (36.0-47.0); HEMOGLOBIN 12.4 g/dl (12.0-15.5); LYMPH # 2.9 10^3/uL (1.5-5.0); LYMPH % 39.2 % (24.0-44.0); MEAN CORPUSCULAR HEMOGLOBIN 31.2 pg (27.0-33.0); MEAN CORPUSCULAR VOLUME 97.5 fl (80.0-96.0); MONO # 0.5 10^3/uL (0.0-0.8); MONO % 6.5 % (2.0-8.0); NEUTROPHILS # 3.8 10^3/uL (1.5-8.5); NEUTROPHILS % 52.4 % (36.0-66.0); PLATELET COUNT, AUTOMATED 190 10^3/uL (150-450); RED BLOOD COUNT 3.97 10^6/uL (4.00-5.40); WHITE BLOOD COUNT 7.3 10^3/uL (4.0-10.0)
== END ==
LOC: M PLALAB 14:38
PROVIDERS: ATTEND Physician Assistant
DX: D64.9 Anemia, unspecified (principal)

== ENCOUNTER → 2021-12-26 | Outpatient (REF) | payer OTHER | LOC: M SFHCPLAZ 13:20 | PROVIDERS: ATTEND Physician Assistant | DX: R19.7 Diarrhea, unspecified (principal) ==

== ENCOUNTER → 2022-01-22 | Outpatient (REF) | payer OTHER | LOC: M SFHCPLAZ 15:16 | PROVIDERS: ATTEND Physician Assistant Medical | DX: A04.72 Enterocolitis due to Clostridium difficile, not specified as recurrent (principal) ==

== ENCOUNTER 2022-02-15 23:55 | Inpatient (IN) | payer OTHER ==
[~2022-02-15] VITALS: Ht 157.5 cm; Wt 77.7 kg
[2022-02-16] MEDS ORDERED: ONDANSETRON 4MG 2ML VIAL IV ONE ×2 (00:45→04:40)
[2022-02-16] MEDS ORDERED: MORPHINE 4 MG/ML 1ML VIAL/SYRINGE IV PRN ×2 (00:45→05:10)
[2022-02-16] MEDS ORDERED: ISOVUE-370 76% 100ML VIAL As Ordered ONE (00:49)
[2022-02-16 01:03] LABS: BASO % 0.3 % (0.0-1.0); EOS # 0.1 10^3/uL (0.0-0.5); EOS % 0.9 % (0.0-3.0); HEMATOCRIT 38.7 % (36.0-47.0); HEMOGLOBIN 12.5 g/dl (12.0-15.5); LYMPH # 2.1 10^3/uL (1.5-5.0); LYMPH % 21.7 % (24.0-44.0); MEAN CORPUSCULAR HEMOGLOBIN 30.9 pg (27.0-33.0); MEAN CORPUSCULAR HGB CONC 32.3 g/dl (32.0-36.5); MEAN CORPUSCULAR VOLUME 95.6 fl (80.0-96.0); MONO # 0.4 10^3/uL (0.0-0.8); MONO % 4.4 % (2.0-8.0); NEUTROPHILS # 6.9 10^3/uL (1.5-8.5); NEUTROPHILS % 72.2 % (36.0-66.0); PLATELET COUNT, AUTOMATED 160 10^3/uL (150-450); RED BLOOD COUNT 4.05 10^6/uL (4.00-5.40); WHITE BLOOD COUNT 9.6 10^3/uL (4.0-10.0)
[2022-02-16] MEDS: GASTROGRAFIN SOLUTION 30ML PO SCH ×2 (01:26→01:59)
[2022-02-16 01:58] LABS: RSV AMPLIFICATION NEGATIVE (NEGATIVE)
[2022-02-16 02:26] LABS: ALBUMIN 2.5 GM/DL (3.2-5.2); BILIRUBIN,DIRECT 0.3 MG/DL (0.0-0.2); BILIRUBIN,TOTAL 0.6 MG/DL (0.2-1.0); CALCIUM LEVEL 8.3 MG/DL (8.8-10.2); CREATININE FOR GFR 1.03 MG/DL (0.55-1.30); GLOMERULAR FILTRATION RATE 55.3 (>39); POTASSIUM SERUM 3.3 MEQ/L (3.5-5.1); TOTAL PROTEIN 5.4 GM/DL (6.4-8.2)
[2022-02-16 02:27] LABS: CK-MB VALUE MASS 2.1 NG/ML (<3.6); MB/CK RELATIVE INDEX 1.88 (< OR =4)
[2022-02-16] MEDS ORDERED: NS 1,000 ML IV SCH (04:40)
[2022-02-16] MEDS ORDERED: PIPERACILLIN/TAZOBACTAM SOD 3.375 GM in D5W MINI-BAG PLUS 50 ML IV ONE (04:40)
[2022-02-16] MEDS ORDERED: MORPHINE 2 MG/ML 1ML VIAL IV PRN (05:10)
[2022-02-16] MEDS ORDERED: GLUCAGON INJ 1MG VIAL SC PRN (05:10)
[2022-02-16] MEDS ORDERED: ONDANSETRON 4MG 2ML VIAL IV PRN (05:10)
[2022-02-16] MEDS ORDERED: DEXTROSE 50% 50 ML SYRINGE IV PRN (05:10)
[2022-02-16] MEDS ORDERED: KCL 20MEQ in NS 1000ML 1,000 ML IV SCH (05:10)
[2022-02-16] MEDS ORDERED: GLUCOSE 4GM CHEW TABLET PO PRN (05:10)
[2022-02-16] MEDS ORDERED: SALIVA SUBSTITUTE(MOUTHKOTE) BTL MT PRN (05:35)
[2022-02-16] MEDS ORDERED: FURO20TA2 PO (05:54)
[2022-02-16] MEDS ORDERED: ELIQ5TAB PO (05:54)
[2022-02-16] MEDS ORDERED: VITMTA PO (05:54)
[2022-02-16] MEDS ORDERED: CARV6.25 PO (05:54)
[2022-02-16] MEDS ORDERED: HOME MED LIST COMPLETE! XX SCH (05:55)
[2022-02-16] MEDS ORDERED: PIPERACILLIN/TAZOBACTAM SOD 3.375 GM in D5W MINI-BAG PLUS 50 ML IV SCH (11:00)
[2022-02-16] MEDS ORDERED: SUCRALFATE SUSP 1GM/10ML UD PO SCH (12:00)
[2022-02-16 14:01] LABS: BLOOD UREA NITROGEN 11 MG/DL (7-18); CALCIUM LEVEL 8.1 MG/DL (8.8-10.2); CARBON DIOXIDE LEVEL 31 MEQ/L (21-32); CHLORIDE LEVEL 107 MEQ/L (98-107); CREATININE FOR GFR 0.89 MG/DL (0.55-1.30); GLOMERULAR FILTRATION RATE > 60.0 (>39); GLUCOSE, FASTING 104 MG/DL (70-100); SODIUM LEVEL 143 MEQ/L (136-145)
[2022-02-16] MEDS ORDERED: SUCR1ORA PO (14:29)
[2022-02-16 16:49] VITALS: BP 136/86
== END 2022-02-16 14:11 | disposition home or self-care (01) | DRG 392 ==
LOC: M ED 23:55 → M ED INP 02-16 05:08 → ENRESERV 02-16 11:38 → M ED INP 02-16 16:44
PROVIDERS: ADMIT Family Medicine; ATTEND Internal Medicine
DX: K29.70 Gastritis, unspecified, without bleeding (principal); I10 Essential (primary) hypertension; J44.9 Chronic obstructive pulmonary disease, unspecified; E66.9 Obesity, unspecified; K21.9 Gastro-esophageal reflux disease without esophagitis; E78.5 Hyperlipidemia, unspecified; I48.91 Unspecified atrial fibrillation; Z96.651 Presence of right artificial knee joint; K57.30 Diverticulosis of large intestine without perforation or abscess without bleeding; Z79.899 Other long term (current) drug therapy; N20.0 Calculus of kidney; Z88.8 Allergy status to other drugs, medicaments and biological substances

== ENCOUNTER → 2022-02-20 | Outpatient (CLI) | payer OTHER ==
[~2022-02-20] MED LIST changes: +SUCR1ORA PO; +VITMTA PO
[2022-02-20 14:50] LABS: BASO % 0.6 % (0.0-1.0); EOS # 0.1 10^3/uL (0.0-0.5); EOS % 1.2 % (0.0-3.0); HEMATOCRIT 40.7 % (36.0-47.0); HEMOGLOBIN 12.6 g/dl (12.0-15.5); LYMPH # 2.5 10^3/uL (1.5-5.0); LYMPH % 37.9 % (24.0-44.0); MEAN CORPUSCULAR HEMOGLOBIN 30.4 pg (27.0-33.0); MEAN CORPUSCULAR VOLUME 98.3 fl (80.0-96.0); MONO # 0.5 10^3/uL (0.0-0.8); MONO % 8.1 % (2.0-8.0); NEUTROPHILS # 3.5 10^3/uL (1.5-8.5); NEUTROPHILS % 51.9 % (36.0-66.0); PLATELET COUNT, AUTOMATED 183 10^3/uL (150-450); RED BLOOD COUNT 4.14 10^6/uL (4.00-5.40); WHITE BLOOD COUNT 6.7 10^3/uL (4.0-10.0)
[2022-02-20 17:21] LABS: ALBUMIN 2.9 G/DL (3.2-5.2); ALKALINE PHOSPHATASE 79 U/L; ALT/SGPT 20 U/L (7.0-40); AST/SGOT 24 U/L (<34); BILIRUBIN,TOTAL 0.7 MG/DL (0.3-1.2); BLOOD UREA NITROGEN 6 MG/DL (9-23); CALCIUM LEVEL 8.4 MG/DL (8.3-10.6); CARBON DIOXIDE LEVEL 33 MMOL/L (20-31); CHLORIDE LEVEL 101 MMOL/L (98-107); CREATININE FOR GFR 0.85 MG/DL (0.55-1.30); GLOMERULAR FILTRATION RATE > 60.0 (>39); GLUCOSE, FASTING 94 MG/DL (74-106); POTASSIUM SERUM 3.3 MMOL/L (3.5-5.1); SODIUM LEVEL 144 MMOL/L (136-145); TOTAL PROTEIN 5.8 G/DL
== END ==
LOC: M PLALAB 08:47
PROVIDERS: ATTEND Physician Assistant Medical
DX: K91.30 Postprocedural intestinal obstruction, unspecified as to partial versus complete (principal); Z79.899 Other long term (current) drug therapy

== ENCOUNTER → 2022-02-22 | Outpatient (REF) | payer OTHER | LOC: M SFHCPLAZ 15:04 | PROVIDERS: ATTEND Physician Assistant Medical | DX: R19.7 Diarrhea, unspecified (principal); R10.13 Epigastric pain ==

== ENCOUNTER → 2022-04-11 | Outpatient (REF) | payer OTHER | LOC: M SFHCPLAZ 17:13 | PROVIDERS: ATTEND Physician Assistant | DX: R39.9 Unspecified symptoms and signs involving the genitourinary system (principal) ==

== ENCOUNTER → 2022-04-18 | Outpatient (CLI) | payer OTHER ==
[2022-04-18 15:27] LABS: BASO % 0.5 % (0.0-1.0); EOS # 0.2 10^3/uL (0.0-0.5); EOS % 3.6 % (0.0-3.0); HEMATOCRIT 42.1 % (36.0-47.0); LYMPH # 2.3 10^3/uL (1.5-5.0); LYMPH % 35.7 % (24.0-44.0); MEAN CORPUSCULAR HEMOGLOBIN 30.9 pg (27.0-33.0); MEAN CORPUSCULAR HGB CONC 30.9 g/dl (32.0-36.5); MONO # 0.4 10^3/uL (0.0-0.8); MONO % 6.1 % (2.0-8.0); NEUTROPHILS # 3.5 10^3/uL (1.5-8.5); NEUTROPHILS % 53.8 % (36.0-66.0); PLATELET COUNT, AUTOMATED 152 10^3/uL (150-450); RED BLOOD COUNT 4.21 10^6/uL (4.00-5.40); WHITE BLOOD COUNT 6.4 10^3/uL (4.0-10.0)
[2022-04-18 16:00] LABS: ALBUMIN 2.9 G/DL (3.2-5.2); ALKALINE PHOSPHATASE 89 U/L (46-116); ALT/SGPT 22 U/L (7.0-40); AST/SGOT 24 U/L (<34); BILIRUBIN,TOTAL 0.7 MG/DL (0.3-1.2); BLOOD UREA NITROGEN 11 MG/DL (9-23); CALCIUM LEVEL 8.6 MG/DL (8.3-10.6); CARBON DIOXIDE LEVEL 32 MMOL/L (20-31); CHLORIDE LEVEL 103 MMOL/L (98-107); CREATININE FOR GFR 0.85 MG/DL (0.55-1.30); GLOMERULAR FILTRATION RATE > 60.0 (>39); GLUCOSE, FASTING 103 MG/DL (74-106); POTASSIUM SERUM 3.9 MMOL/L (3.5-5.1); PTH INTACT 92.4 PG/ML (18.5-88.0); SODIUM LEVEL 142 MMOL/L (136-145); TOTAL PROTEIN 6.1 G/DL (5.7-8.2); VITAMIN B12 LEVEL 346 PG/ML (211-911)
[2022-04-18 16:09] LABS: HEMOGLOBIN A1c 4.9 % (4.0-6.0)
[2022-04-19 14:42] LABS: TOTAL 25(OH) VITAMIN D 44.9 NG/ML (20.0-100.0)
== END ==
LOC: M PLALAB 12:15
PROVIDERS: ATTEND Physician Assistant Medical
DX: Z00.00 Encounter for general adult medical examination without abnormal findings (principal); R11.2 Nausea with vomiting, unspecified; K21.9 Gastro-esophageal reflux disease without esophagitis; E55.9 Vitamin D deficiency, unspecified; R73.03 Prediabetes; Z79.899 Other long term (current) drug therapy

== ENCOUNTER → 2022-06-08 | Outpatient (CLI) | payer OTHER ==
[~2022-06-08] MED LIST changes: +ISOVUE-370 76% 100ML VIAL As Ordered ONE
== END ==
LOC: M RAD 10:56
PROVIDERS: ATTEND Physician Assistant Medical
DX: R59.1 Generalized enlarged lymph nodes (principal)
CPT/HCPCS: 70491; Q9967

== ENCOUNTER → 2022-07-30 | Outpatient (CLI) | payer OTHER ==
[~2022-07-30] MED LIST changes: +FLUT50SP17; -FLUTISP; -ISOVUE-370 76% 100ML VIAL As Ordered ONE
== END ==
LOC: M CARPUL 09:46
PROVIDERS: ATTEND Physician Assistant Medical
DX: I47.1 Supraventricular tachycardia (principal)

== ENCOUNTER → 2022-08-08 | Outpatient (CLI) | payer OTHER ==
[2022-08-08 15:16] LABS: BASO % 0.7 % (0.0-1.0); EOS # 0.1 10^3/uL (0.0-0.5); EOS % 1.4 % (0.0-3.0); HEMATOCRIT 39.4 % (36.0-47.0); HEMOGLOBIN 12.4 g/dl (12.0-15.5); LYMPH # 2.5 10^3/uL (1.5-5.0); LYMPH % 45.4 % (24.0-44.0); MEAN CORPUSCULAR HEMOGLOBIN 31.9 pg (27.0-33.0); MEAN CORPUSCULAR HGB CONC 31.5 g/dl (32.0-36.5); MEAN CORPUSCULAR VOLUME 101.3 fl (80.0-96.0); MONO # 0.4 10^3/uL (0.0-0.8); MONO % 6.3 % (2.0-8.0); NEUTROPHILS # 2.6 10^3/uL (1.5-8.5); PLATELET COUNT, AUTOMATED 150 10^3/uL (150-450); RED BLOOD COUNT 3.89 10^6/uL (4.00-5.40); WHITE BLOOD COUNT 5.6 10^3/uL (4.0-10.0)
[2022-08-08 15:38] LABS: ALBUMIN 2.9 G/DL (3.2-5.2); ALKALINE PHOSPHATASE 80 U/L (46-116); ALT/SGPT 18 U/L (7.0-40); AST/SGOT 23 U/L (<34); BILIRUBIN,TOTAL 0.7 MG/DL (0.3-1.2); BLOOD UREA NITROGEN 11 MG/DL (9-23); CALCIUM LEVEL 8.3 MG/DL (8.3-10.6); CARBON DIOXIDE LEVEL 31 MMOL/L (20-31); CHLORIDE LEVEL 108 MMOL/L (98-107); CREATININE FOR GFR 0.79 MG/DL (0.55-1.30); GLOMERULAR FILTRATION RATE > 60.0 (>39); GLUCOSE, FASTING 99 MG/DL (74-106); POTASSIUM SERUM 4.2 MMOL/L (3.5-5.1); SODIUM LEVEL 144 MMOL/L (136-145); TOTAL PROTEIN 5.6 G/DL (5.7-8.2)
[2022-08-08 15:39] LABS: C REACTIVE PROTEIN QUANTITATIV < 0.40 MG/DL (<1.0)
[2022-08-08 15:59] LABS: ERYTHROCYTE SEDIMENTATION RATE 4 mm/hr (0-30)
== END ==
LOC: M PLALAB 11:38
PROVIDERS: ATTEND Physician Assistant
DX: R39.9 Unspecified symptoms and signs involving the genitourinary system (principal); R07.89 Other chest pain; M54.50 Low back pain, unspecified; R53.81 Other malaise

== ENCOUNTER → 2022-11-13 | Outpatient (CLI) | payer OTHER ==
[2022-11-13 16:22] LABS: CHOLESTEROL RISK RATIO 1.74 (<5); HDL CHOLESTEROL 63.5 MG/DL (>40); LDL CHOLESTEROL 32.9 MG/DL (<100); NON-HDL-C 47.5 MG/DL
== END ==
LOC: M PLALAB 12:42
PROVIDERS: ATTEND Physician Assistant Medical
DX: E78.2 Mixed hyperlipidemia (principal)

== ENCOUNTER → 2022-11-27 | Outpatient (CLI) | payer OTHER ==
[~2022-11-27] MED LIST changes: +E-Z-GAS II EFFERVESCENT PACKET (SODIUM BICARB./CITRIC ACID/SIMETHICONE) As Ordered ONE; +E-Z-HD 98% w/w 340GM SUSP BTL As Ordered ONE; +E-Z-PAQUE 96% w/w SUSP 176GM BTL As Ordered ONE
== END ==
LOC: M RAD 08:31
PROVIDERS: ATTEND Physician Assistant Medical
DX: R13.11 Dysphagia, oral phase (principal)

== ENCOUNTER → 2022-12-04 | Outpatient (CLI) | payer OTHER ==
[~2022-12-04] MED LIST changes: -E-Z-GAS II EFFERVESCENT PACKET (SODIUM BICARB./CITRIC ACID/SIMETHICONE) As Ordered ONE; -E-Z-HD 98% w/w 340GM SUSP BTL As Ordered ONE; -E-Z-PAQUE 96% w/w SUSP 176GM BTL As Ordered ONE
== END ==
LOC: M WHC 13:27
PROVIDERS: ATTEND Advanced Practice Midwife
DX: Z12.31 Encounter for screening mammogram for malignant neoplasm of breast (principal); Z85.3 Personal history of malignant neoplasm of breast

== ENCOUNTER → 2022-12-04 | Outpatient (CLI) | payer OTHER | LOC: M WHC 11:15 | PROVIDERS: ATTEND Physician Assistant Medical | DX: M85.89 Other specified disorders of bone density and structure, multiple sites (principal); Z78.0 Asymptomatic menopausal state ==

== ENCOUNTER 2023-02-14 11:02 | Day surgery (SDC) | payer OTHER ==
[~2023-02-14] VITALS: Ht 154.9 cm; Wt 63.2 kg
[~2023-02-14 11:02] MED LIST changes: +LIDOCAINE 2% 100MG/5ML SDV (FOR ANES.) As Ordered ONE; +NS 1,000 ML IV ONE; +propofoL 200 MG/20 ML VIAL As Ordered ONE
[2023-02-14 11:51] VITALS: TEMP 97.7
[2023-02-14 12:12] VITALS: BP 179/85; O2SAT 98
== END 2023-02-14 12:12 | disposition home or self-care (01) ==
LOC: M OPP 11:02
PROVIDERS: ATTEND Surgery
DX: Z98.84 Bariatric surgery status (principal); Z79.01 Long term (current) use of anticoagulants; Z79.02 Long term (current) use of antithrombotics/antiplatelets; Z79.52 Long term (current) use of systemic steroids; Z79.899 Other long term (current) drug therapy; Z88.8 Allergy status to other drugs, medicaments and biological substances

== ENCOUNTER → 2023-03-27 | Outpatient (CLI) | payer OTHER ==
[~2023-03-27] MED LIST changes: -FLUT50SP17; +FLUTISP; -LIDOCAINE 2% 100MG/5ML SDV (FOR ANES.) As Ordered ONE; -NS 1,000 ML IV ONE; -propofoL 200 MG/20 ML VIAL As Ordered ONE
[2023-03-27 13:45] LABS: BASO % 0.8 % (0.0-1.0); EOS # 0.1 10^3/uL (0.0-0.5); EOS % 2.1 % (0.0-3.0); HEMATOCRIT 38.3 % (36.0-47.0); HEMOGLOBIN 12.2 g/dl (12.0-15.5); LYMPH # 2.4 10^3/uL (1.5-5.0); LYMPH % 44.2 % (24.0-44.0); MEAN CORPUSCULAR HEMOGLOBIN 31.4 pg (27.0-33.0); MEAN CORPUSCULAR HGB CONC 31.9 g/dl (32.0-36.5); MEAN CORPUSCULAR VOLUME 98.5 fl (80.0-96.0); MONO # 0.4 10^3/uL (0.0-0.8); MONO % 7.3 % (2.0-8.0); NEUTROPHILS # 2.4 10^3/uL (1.5-8.5); NEUTROPHILS % 45.4 % (36.0-66.0); PLATELET COUNT, AUTOMATED 175 10^3/uL (150-450); RED BLOOD COUNT 3.89 10^6/uL (4.00-5.40); WHITE BLOOD COUNT 5.3 10^3/uL (4.0-10.0)
[2023-03-27 14:18] LABS: ALKALINE PHOSPHATASE 100 U/L (46-116); ALT/SGPT 20 U/L (7.0-40); AST/SGOT 22 U/L (<34); BILIRUBIN,TOTAL 0.7 MG/DL (0.3-1.2); BLOOD UREA NITROGEN 13 MG/DL (9-23); CARBON DIOXIDE LEVEL 28 MMOL/L (20-31); CHLORIDE LEVEL 109 MMOL/L (98-107); CREATININE FOR GFR 0.68 MG/DL (0.55-1.30); GLOMERULAR FILTRATION RATE > 60.0 (>39); GLUCOSE, FASTING 79 MG/DL (74-106); IRON (FE) 78 UG/DL (50-170); POTASSIUM SERUM 3.6 MMOL/L (3.5-5.1); SODIUM LEVEL 142 MMOL/L (136-145); TOTAL PROTEIN 5.8 G/DL (5.7-8.2)
[2023-03-27 14:20] LABS: TOTAL 25(OH) VITAMIN D 25.6 NG/ML (20.0-100.0)
[2023-03-27 14:21] LABS: VITAMIN B12 LEVEL 286 PG/ML (211-911)
== END ==
LOC: M PLALAB 10:57
PROVIDERS: ATTEND Physician Assistant Medical
DX: E55.9 Vitamin D deficiency, unspecified (principal); I48.0 Paroxysmal atrial fibrillation; Z98.84 Bariatric surgery status

== ENCOUNTER → 2023-04-04 | Outpatient (CLI) | payer OTHER ==
[~2023-04-04] MED LIST changes: +ISOVUE-370 76% 100ML VIAL ONE
== END ==
LOC: M PLAIMG 13:37
PROVIDERS: ATTEND Otolaryngology
DX: R59.0 Localized enlarged lymph nodes (principal)
CPT/HCPCS: 70491; Q9967

== ENCOUNTER → 2023-04-11 | Outpatient (CLI) | payer OTHER ==
[~2023-04-11] MED LIST changes: -ISOVUE-370 76% 100ML VIAL ONE
[2023-04-11 16:13] LABS: BASO # 0.1 10^3/uL (0.0-0.2); BASO % 0.8 % (0.0-1.0); EOS # 0.1 10^3/uL (0.0-0.5); EOS % 2.2 % (0.0-3.0); HEMATOCRIT 36.2 % (36.0-47.0); HEMOGLOBIN 11.4 g/dl (12.0-15.5); LYMPH # 2.1 10^3/uL (1.5-5.0); LYMPH % 35.6 % (24.0-44.0); MEAN CORPUSCULAR HEMOGLOBIN 31.3 pg (27.0-33.0); MEAN CORPUSCULAR HGB CONC 31.5 g/dl (32.0-36.5); MEAN CORPUSCULAR VOLUME 99.5 fl (80.0-96.0); MONO # 0.5 10^3/uL (0.0-0.8); MONO % 9.1 % (2.0-8.0); NEUTROPHILS # 3.1 10^3/uL (1.5-8.5); NEUTROPHILS % 52.1 % (36.0-66.0); PLATELET COUNT, AUTOMATED 186 10^3/uL (150-450); RED BLOOD COUNT 3.64 10^6/uL (4.00-5.40); WHITE BLOOD COUNT 5.9 10^3/uL (4.0-10.0)
[2023-04-11 16:37] LABS: ALBUMIN 2.6 G/DL (3.2-5.2); BILIRUBIN,TOTAL 0.4 MG/DL (0.3-1.2); CALCIUM LEVEL 8.2 MG/DL (8.3-10.6); GLOMERULAR FILTRATION RATE 57.1 (>39); POTASSIUM SERUM 3.8 MMOL/L (3.5-5.1); TOTAL PROTEIN 5.3 G/DL (5.7-8.2)
== END ==
LOC: M PLALAB 12:16
PROVIDERS: ATTEND Internal Medicine Cardiovascular Disease
DX: I48.0 Paroxysmal atrial fibrillation (principal)

== ENCOUNTER → 2023-05-03 | Outpatient (CLI) | payer OTHER ==
[2023-05-03 14:15] LABS: BASO % 0.7 % (0.0-1.0); EOS # 0.1 10^3/uL (0.0-0.5); EOS % 2.1 % (0.0-3.0); HEMOGLOBIN 12.7 g/dl (12.0-15.5); LYMPH # 2.5 10^3/uL (1.5-5.0); MEAN CORPUSCULAR HEMOGLOBIN 31.3 pg (27.0-33.0); MEAN CORPUSCULAR HGB CONC 31.8 g/dl (32.0-36.5); MEAN CORPUSCULAR VOLUME 98.5 fl (80.0-96.0); MONO # 0.4 10^3/uL (0.0-0.8); MONO % 7.5 % (2.0-8.0); NEUTROPHILS # 2.6 10^3/uL (1.5-8.5); NEUTROPHILS % 45.5 % (36.0-66.0); PLATELET COUNT, AUTOMATED 168 10^3/uL (150-450); RED BLOOD COUNT 4.06 10^6/uL (4.00-5.40); WHITE BLOOD COUNT 5.8 10^3/uL (4.0-10.0)
[2023-05-03 14:43] LABS: ALBUMIN 2.7 G/DL (3.2-5.2); ALKALINE PHOSPHATASE 103 U/L (46-116); ALT/SGPT 22 U/L (7.0-40); AST/SGOT 21 U/L (<34); BILIRUBIN,TOTAL 0.6 MG/DL (0.3-1.2); BLOOD UREA NITROGEN 10 MG/DL (9-23); CALCIUM LEVEL 8.7 MG/DL (8.3-10.6); CARBON DIOXIDE LEVEL 28 MMOL/L (20-31); CHLORIDE LEVEL 110 MMOL/L (98-107); CREATININE FOR GFR 0.72 MG/DL (0.55-1.30); GLOMERULAR FILTRATION RATE > 60.0 (>39); GLUCOSE, FASTING 115 MG/DL (74-106); POTASSIUM SERUM 3.9 MMOL/L (3.5-5.1); SODIUM LEVEL 139 MMOL/L (136-145); TOTAL PROTEIN 5.9 G/DL (5.7-8.2)
[2023-05-03 14:44] LABS: THYROID STIMULATING HORMONE 1.346 uIU/ML (0.55-4.78)
[2023-05-03 14:46] LABS: FREE T4 0.98 NG/DL (0.89-1.76)
== END ==
LOC: M PLALAB 12:04
PROVIDERS: ATTEND Physician Assistant Medical
DX: R53.83 Other fatigue (principal)

== ENCOUNTER → 2023-07-04 | Outpatient (CLI) | payer OTHER ==
[2023-07-04 18:55] LABS: BASO # 0.1 10^3/uL (0.0-0.2); BASO % 0.8 % (0.0-1.0); EOS # 0.1 10^3/uL (0.0-0.5); EOS % 1.8 % (0.0-3.0); HEMATOCRIT 38.9 % (36.0-47.0); HEMOGLOBIN 12.1 g/dl (12.0-15.5); LYMPH # 3.5 10^3/uL (1.5-5.0); LYMPH % 53.1 % (24.0-44.0); MEAN CORPUSCULAR HEMOGLOBIN 30.9 pg (27.0-33.0); MEAN CORPUSCULAR HGB CONC 31.1 g/dl (32.0-36.5); MEAN CORPUSCULAR VOLUME 99.2 fl (80.0-96.0); MONO # 0.5 10^3/uL (0.0-0.8); MONO % 8.2 % (2.0-8.0); NEUTROPHILS # 2.4 10^3/uL (1.5-8.5); NEUTROPHILS % 35.9 % (36.0-66.0); PLATELET COUNT, AUTOMATED 164 10^3/uL (150-450); RED BLOOD COUNT 3.92 10^6/uL (4.00-5.40); WHITE BLOOD COUNT 6.6 10^3/uL (4.0-10.0)
[2023-07-04 19:06] LABS: TOTAL 25(OH) VITAMIN D 25.5 NG/ML (20.0-100.0)
[2023-07-04 19:08] LABS: ALKALINE PHOSPHATASE 106 U/L (46-116); ALT/SGPT 17 U/L (7.0-40); AST/SGOT 16 U/L (<34); BILIRUBIN,TOTAL 0.3 MG/DL (0.3-1.2); BLOOD UREA NITROGEN 15 MG/DL (9-23); CALCIUM LEVEL 8.3 MG/DL (8.3-10.6); CARBON DIOXIDE LEVEL 30 MMOL/L (20-31); CHLORIDE LEVEL 109 MMOL/L (98-107); CHOLESTEROL LEVEL 108 MG/DL (<200); CHOLESTEROL RISK RATIO 2.14 (<5); CREATININE FOR GFR 0.83 MG/DL (0.55-1.30); GLOMERULAR FILTRATION RATE > 60.0 (>39); GLUCOSE, FASTING 104 MG/DL (74-106); HDL CHOLESTEROL 50.4 MG/DL (>40); IRON (FE) 78 UG/DL (50-170); LDL CHOLESTEROL 39.2 MG/DL (<100); NON-HDL-C 57.6 MG/DL; POTASSIUM SERUM 4.4 MMOL/L (3.5-5.1); SODIUM LEVEL 144 MMOL/L (136-145); TOTAL PROTEIN 5.9 G/DL (5.7-8.2); TRIGLYCERIDES LEVEL 92 MG/DL (<150)
[2023-07-04 19:20] LABS: PTH INTACT 83.9 PG/ML (18.5-88.0)
[2023-07-04 19:26] LABS: HEMOGLOBIN A1c 5.2 % (4.0-6.0)
== END ==
LOC: M PLALAB 15:37
PROVIDERS: ATTEND Physician Assistant Medical
DX: I10 Essential (primary) hypertension (principal); Z98.84 Bariatric surgery status; R73.03 Prediabetes; E78.2 Mixed hyperlipidemia; E55.9 Vitamin D deficiency, unspecified; Z86.39 Personal history of other endocrine, nutritional and metabolic disease

== ENCOUNTER → 2023-07-04 | Outpatient (CLI) | payer OTHER | LOC: M PLAIMG 14:40 | PROVIDERS: ATTEND Internal Medicine Cardiovascular Disease | DX: I34.0 Nonrheumatic mitral (valve) insufficiency (principal); I10 Essential (primary) hypertension; R73.03 Prediabetes; E78.2 Mixed hyperlipidemia; E55.9 Vitamin D deficiency, unspecified; Z98.84 Bariatric surgery status; Z86.39 Personal history of other endocrine, nutritional and metabolic disease ==

== ENCOUNTER → 2023-07-05 | Outpatient (CLI) | payer OTHER | LOC: M EKG 11:43 | PROVIDERS: ATTEND Internal Medicine Cardiovascular Disease | DX: I48.0 Paroxysmal atrial fibrillation (principal); I49.3 Ventricular premature depolarization ==

== ENCOUNTER 2023-07-10 08:29 | Emergency (ER) | payer OTHER ==
[~2023-07-10] VITALS: Ht 154.9 cm; Wt 65.3 kg
[2023-07-10 09:57] LABS: BASO % 0.7 % (0.0-1.0); EOS # 0.1 10^3/uL (0.0-0.5); EOS % 1.8 % (0.0-3.0); HEMATOCRIT 38.6 % (36.0-47.0); HEMOGLOBIN 12.4 g/dl (12.0-15.5); LYMPH # 2.3 10^3/uL (1.5-5.0); LYMPH % 38.4 % (24.0-44.0); MEAN CORPUSCULAR HEMOGLOBIN 31.6 pg (27.0-33.0); MEAN CORPUSCULAR HGB CONC 32.1 g/dl (32.0-36.5); MEAN CORPUSCULAR VOLUME 98.5 fl (80.0-96.0); MONO # 0.4 10^3/uL (0.0-0.8); MONO % 6.7 % (2.0-8.0); NEUTROPHILS # 3.1 10^3/uL (1.5-8.5); NEUTROPHILS % 52.2 % (36.0-66.0); PLATELET COUNT, AUTOMATED 175 10^3/uL (150-450); RED BLOOD COUNT 3.92 10^6/uL (4.00-5.40)
[2023-07-10 10:21] LABS: BLOOD UREA NITROGEN 11 MG/DL (9-23); CALCIUM LEVEL 8.8 MG/DL (8.3-10.6); CARBON DIOXIDE LEVEL 28 MMOL/L (20-31); CHLORIDE LEVEL 110 MMOL/L (98-107); CREATININE FOR GFR 0.69 MG/DL (0.55-1.30); GLOMERULAR FILTRATION RATE > 60.0 (>39); GLUCOSE, FASTING 105 MG/DL (74-106); POTASSIUM SERUM 3.7 MMOL/L (3.5-5.1); SODIUM LEVEL 141 MMOL/L (136-145)
[2023-07-10 10:26] LABS: CK-MB VALUE MASS < 1.0 NG/ML (<3.6)
[2023-07-10 10:27] LABS: CPK CREATINE PHOSPHOKINASE 66 U/L (34-145); MB/CK RELATIVE INDEX 1.51 (< OR =4)
[2023-07-10] MEDS: ACETAMINOPHEN 500 MG TAB PO ONE (11:31)
[2023-07-10 11:50] LABS: INR 1.26; PROTHROMBIN TIME 15.4 SECONDS (12.5-14.5)
[2023-07-10 12:05] LABS: FREE T4 0.98 NG/DL (0.89-1.76); THYROID STIMULATING HORMONE 2.261 uIU/ML (0.55-4.78)
[2023-07-10 13:26] LABS: CK-MB VALUE MASS < 1.0 NG/ML (<3.6)
[2023-07-10 13:30] LABS: CPK CREATINE PHOSPHOKINASE 63 U/L (34-145); MB/CK RELATIVE INDEX 1.58 (< OR =4)
[2023-07-10 13:59] VITALS: BP 137/70; TEMP 97.8; O2SAT 99
== END 2023-07-10 14:26 | disposition home or self-care (01) ==
LOC: M ED 10:48
DX: R07.9 Chest pain, unspecified (principal); S39.012A Strain of muscle, fascia and tendon of lower back, initial encounter; I10 Essential (primary) hypertension; E78.5 Hyperlipidemia, unspecified; K21.9 Gastro-esophageal reflux disease without esophagitis; C50.919 Malignant neoplasm of unspecified site of unspecified female breast; Z87.442 Personal history of urinary calculi; Z86.79 Personal history of other diseases of the circulatory system; Z98.84 Bariatric surgery status; Z88.8 Allergy status to other drugs, medicaments and biological substances; Y92.009 Unspecified place in unspecified non-institutional (private) residence as the place of occurrence of the external cause; Y93.9 Activity, unspecified; Y99.9 Unspecified external cause status; Z79.01 Long term (current) use of anticoagulants; Z79.02 Long term (current) use of antithrombotics/antiplatelets; Z79.899 Other long term (current) drug therapy

== ENCOUNTER → 2023-07-19 | Outpatient (CLI) | payer OTHER ==
[~2023-07-19] VITALS: Ht 154.9 cm; Wt 63.2 kg
[~2023-07-19] MED LIST changes: +ALBUTEROL SULFATE 2.5MG/0.5ML INH NEB SOLN INH PRN; +EPINEPHrine INJ 1 MG/ML 1ML AMP IM PRN; +diphenhydrAMINE 50MG/ML VIAL IV PRN; +methylPREDNISolone 125MG 2ML VIAL IV PRN
[2023-07-19 12:15] VITALS: BP 176/90; O2SAT 100
[2023-07-19] MEDS: ACETAMINOPHEN 650MG PO PRIOR TO INFUSION PO ONE (12:34)
[2023-07-19] MEDS: diphenhydrAMINE 25MG PO PRIOR TO INFUSION PO ONE (12:34)
[2023-07-19] MEDS: NS 1,000 ML IV SCH (13:09)
[2023-07-19] MEDS: IRON SUCROSE 250 MG in NS 237.5 ML IV ONE (13:13)
[2023-07-19 14:17] VITALS: BP 138/69; O2SAT 97
== END ==
LOC: M INFU 12:21
PROVIDERS: ATTEND Physician Assistant Medical
DX: R71.0 Precipitous drop in hematocrit (principal); Z88.8 Allergy status to other drugs, medicaments and biological substances
CPT/HCPCS: 96365; J1756

== ENCOUNTER 2023-08-19 13:25 | Outpatient (CLI) | payer OTHER ==
[~2023-08-19] VITALS: Ht 154.9 cm; Wt 63.1 kg
[~2023-08-19 13:25] MED LIST changes: +NS 1,000 ML IV SCH
[2023-08-19 13:30] VITALS: BP 160/78; O2SAT 100
[2023-08-19] MEDS: diphenhydrAMINE 25MG PO PRIOR TO INFUSION PO ONE (13:37)
[2023-08-19] MEDS: ACETAMINOPHEN 650MG PO PRIOR TO INFUSION PO ONE (13:37)
[2023-08-19] MEDS: IRON SUCROSE 250 MG in NS 237.5 ML IV ONE (13:56)
[2023-08-19] MEDS ORDERED: FERR325T3 PO (13:57)
[2023-08-19 15:20] VITALS: BP 159/75; O2SAT 100
== END 2023-08-19 15:30 ==
LOC: M INFU 13:25
PROVIDERS: ATTEND Physician Assistant Medical
DX: R71.0 Precipitous drop in hematocrit (principal); Z88.8 Allergy status to other drugs, medicaments and biological substances
CPT/HCPCS: 96365; J1756

== ENCOUNTER 2023-08-26 12:45 | Outpatient (CLI) | payer OTHER ==
[~2023-08-26] VITALS: Ht 154.9 cm; Wt 63.6 kg
[~2023-08-26 12:45] MED LIST changes: +FERR325T3 PO; -NS 1,000 ML IV SCH
[2023-08-26] MEDS ORDERED: NS 1,000 ML IV SCH (13:00)
[2023-08-26 13:10] VITALS: BP 163/79; O2SAT 98
[2023-08-26] MEDS: diphenhydrAMINE 25MG CAP PO ONE (13:30)
[2023-08-26] MEDS: ACETAMINOPHEN TAB 650MG DOSE (2X325MG) PO ONE (13:30)
[2023-08-26] MEDS: IRON SUCROSE 250 MG in NS 237.5 ML IV ONE (14:06)
[2023-08-26 15:05] VITALS: BP 137/72; O2SAT 98
== END 2023-08-26 15:10 | disposition home or self-care (01) ==
LOC: M INFU 12:45
PROVIDERS: ATTEND Physician Assistant Medical
DX: R71.0 Precipitous drop in hematocrit (principal); Z88.8 Allergy status to other drugs, medicaments and biological substances
CPT/HCPCS: 96365; J1756

== ENCOUNTER → 2023-08-28 | Outpatient (CLI) | payer OTHER ==
[~2023-08-28] MED LIST changes: -ALBUTEROL SULFATE 2.5MG/0.5ML INH NEB SOLN INH PRN; -EPINEPHrine INJ 1 MG/ML 1ML AMP IM PRN; -diphenhydrAMINE 50MG/ML VIAL IV PRN; -methylPREDNISolone 125MG 2ML VIAL IV PRN
[2023-08-28 15:33] LABS: BASO # 0.1 10^3/uL (0.0-0.2); BASO % 0.8 % (0.0-1.0); EOS # 0.1 10^3/uL (0.0-0.5); EOS % 1.4 % (0.0-3.0); HEMATOCRIT 39.7 % (36.0-47.0); HEMOGLOBIN 12.6 g/dl (12.0-15.5); LYMPH % 45.6 % (24.0-44.0); MEAN CORPUSCULAR HEMOGLOBIN 31.3 pg (27.0-33.0); MEAN CORPUSCULAR HGB CONC 31.7 g/dl (32.0-36.5); MEAN CORPUSCULAR VOLUME 98.5 fl (80.0-96.0); MONO # 0.5 10^3/uL (0.0-0.8); NEUTROPHILS # 2.9 10^3/uL (1.5-8.5); PLATELET COUNT, AUTOMATED 155 10^3/uL (150-450); RED BLOOD COUNT 4.03 10^6/uL (4.00-5.40); WHITE BLOOD COUNT 6.5 10^3/uL (4.0-10.0)
[2023-08-28 17:43] LABS: IRON (FE) 90 UG/DL (50-170)
[2023-08-28 17:45] LABS: ALBUMIN 2.9 G/DL (3.2-5.2); ALKALINE PHOSPHATASE 120 U/L (46-116); ALT/SGPT 20 U/L (7.0-40); AST/SGOT 17 U/L (<34); BILIRUBIN,TOTAL 0.4 MG/DL (0.3-1.2); BLOOD UREA NITROGEN 14 MG/DL (9-23); CALCIUM LEVEL 8.3 MG/DL (8.3-10.6); CARBON DIOXIDE LEVEL 28 MMOL/L (20-31); CHLORIDE LEVEL 109 MMOL/L (98-107); CREATININE FOR GFR 0.72 MG/DL (0.55-1.30); GLOMERULAR FILTRATION RATE > 60.0 (>39); GLUCOSE, FASTING 91 MG/DL (74-106); POTASSIUM SERUM 3.7 MMOL/L (3.5-5.1); SODIUM LEVEL 144 MMOL/L (136-145); TOTAL PROTEIN 5.7 G/DL (5.7-8.2)
[2023-08-28 17:51] LABS: FERRITIN 294.8 NG/ML (7.3-270.7); FREE T4 0.97 NG/DL (0.89-1.76); THYROID STIMULATING HORMONE 1.054 uIU/ML (0.55-4.78)
== END ==
LOC: M PLALAB 12:11
PROVIDERS: ATTEND Physician Assistant Medical
DX: R71.0 Precipitous drop in hematocrit (principal); R53.83 Other fatigue

== ENCOUNTER → 2023-09-10 | Outpatient (CLI) | payer OTHER ==
[~2023-09-10] MED LIST changes: -AZEL0.055; +AZEL1SPR4
== END ==
LOC: M RAD 13:52
PROVIDERS: ATTEND Otolaryngology
DX: R22.1 Localized swelling, mass and lump, neck (principal)

== ENCOUNTER → 2023-09-17 | Outpatient (CLI) | payer OTHER | LOC: M PLAIMG 13:44 | PROVIDERS: ATTEND Physician Assistant Medical | DX: R59.1 Generalized enlarged lymph nodes (principal) ==

== ENCOUNTER → 2023-09-20 | Outpatient (CLI) | payer OTHER ==
[~2023-09-20] MED LIST changes: +ISOVUE-370 76% 100ML VIAL ONE
== END ==
LOC: M PLAIMG 12:58
PROVIDERS: ATTEND Physician Assistant Medical
DX: E04.1 Nontoxic single thyroid nodule (principal); R59.1 Generalized enlarged lymph nodes
CPT/HCPCS: 70492; Q9967

== ENCOUNTER → 2023-10-03 | Outpatient (REF) | payer OTHER ==
[~2023-10-03] MED LIST changes: -ISOVUE-370 76% 100ML VIAL ONE
[2023-10-03 16:01] LABS: APPEARANCE, URINE MANUAL HAZY (CLEAR); BILIRUBIN, URINE MANUAL NEGATIVE (NEGATIVE); COLOR, URINE MANUAL YELLOW (YELLOW); GLUCOSE, URINE (UA) MANUAL NEGATIVE (NEGATIVE); KETONE, URINE MANUAL NEGATIVE (NEGATIVE); PH,URINE MAN 5.5 UNITS (5.0 - 7.0); PROTEIN, URINE MANUAL 2+ mg/dL (NEGATIVE); UROBILINOGEN, URINE MANUAL NORMAL (NORMAL)
[2023-10-03 16:02] LABS: BLOOD URINE MANUAL POSITIVE (NEGATIVE); LEUKOCYTE ESTERASE, URINE MAN POSITIVE (NEGATIVE); NITRITE, URINE MANUAL POSITIVE (NEGATIVE)
[2023-10-03 17:42] LABS: WBC, URINE TNTC /hpf (0-3)
[2023-10-03 17:43] LABS: BACTERIA, URINE MOD AMOUNT; CALCIUM OXALATE CRYSTALS,URINE SMALL AMOUNT /hpf; MUCUS, URINE MOD AMOUNT (NEGATIVE); SQUAMOUS EPITHELIAL CELL URINE SMALL AMOUNT /hpf (SMALL AMT); TRANSITIONAL EPI CELLS, URINE SMALL AMOUNT /hpf
[2023-10-03 17:45] LABS: HYALINE CAST, URINE 0-1 /lpf (0-1)
== END ==
LOC: M SFHCPLAZ 15:06
PROVIDERS: ATTEND Physician Assistant Medical
DX: R30.0 Dysuria (principal); R35.0 Frequency of micturition

== ENCOUNTER → 2023-12-16 | Outpatient (CLI) | payer OTHER | LOC: M WHC 09:55 | PROVIDERS: ATTEND Physician Assistant Medical | DX: Z12.31 Encounter for screening mammogram for malignant neoplasm of breast (principal) ==

== ENCOUNTER → 2024-04-17 | Outpatient (CLI) | payer MEDICARE | LOC: M RAD 12:18 | PROVIDERS: ATTEND Otolaryngology | DX: R22.1 Localized swelling, mass and lump, neck (principal) ==

== ENCOUNTER → 2024-04-27 | Outpatient (CLI) | payer MEDICARE ==
[2024-04-27 16:16] LABS: BASO % 0.6 % (0.0-1.0); EOS # 0.1 10^3/uL (0.0-0.5); EOS % 1.4 % (0.0-3.0); HEMATOCRIT 38.5 % (36.0-47.0); HEMOGLOBIN 12.5 g/dl (12.0-15.5); LYMPH # 2.9 10^3/uL (1.5-5.0); LYMPH % 45.1 % (24.0-44.0); MEAN CORPUSCULAR HEMOGLOBIN 31.2 pg (27.0-33.0); MEAN CORPUSCULAR HGB CONC 32.5 g/dl (32.0-36.5); MONO # 0.5 10^3/uL (0.0-0.8); MONO % 7.4 % (2.0-8.0); NEUTROPHILS # 2.9 10^3/uL (1.5-8.5); NEUTROPHILS % 45.3 % (36.0-66.0); PLATELET COUNT, AUTOMATED 142 10^3/uL (150-450); RED BLOOD COUNT 4.01 10^6/uL (4.00-5.40); WHITE BLOOD COUNT 6.5 10^3/uL (4.0-10.0)
[2024-04-27 16:34] LABS: HEMOGLOBIN A1c 5.1 % (4.0-6.0)
[2024-04-27 16:39] LABS: ALBUMIN 3.2 G/DL (3.2-5.2); ALKALINE PHOSPHATASE 110 U/L (35-104); ALT/SGPT 17 U/L (7.0-40); AST/SGOT 15 U/L (<34); BILIRUBIN,TOTAL 0.5 MG/DL (0.3-1.2); BLOOD UREA NITROGEN 12 MG/DL (9-23); CALCIUM LEVEL 8.8 MG/DL (8.3-10.6); CARBON DIOXIDE LEVEL 27 MMOL/L (20-31); CHLORIDE LEVEL 109 MMOL/L (98-107); CHOLESTEROL LEVEL 135 MG/DL (<200); CHOLESTEROL RISK RATIO 2.24 (<5); CREATININE FOR GFR 0.63 MG/DL (0.55-1.30); GLOMERULAR FILTRATION RATE > 60.0 (>39); GLUCOSE, FASTING 92 MG/DL (74-106); HDL CHOLESTEROL 60.1 MG/DL (>40); IRON (FE) 128 UG/DL (50-170); LDL CHOLESTEROL 58.1 MG/DL (<100); NON-HDL-C 74.9 MG/DL; POTASSIUM SERUM 3.5 MMOL/L (3.5-5.1); SODIUM LEVEL 144 MMOL/L (136-145); TOTAL PROTEIN 6.4 G/DL (5.7-8.2); TRIGLYCERIDES LEVEL 84 MG/DL (<150)
[2024-04-27 16:40] LABS: VITAMIN B12 LEVEL 259 PG/ML (211-911)
[2024-04-27 16:41] LABS: TOTAL 25(OH) VITAMIN D 16.4 NG/ML (20.0-100.0)
== END ==
LOC: M PLALAB 13:11
PROVIDERS: ATTEND Physician Assistant Medical
DX: I10 Essential (primary) hypertension (principal); R73.03 Prediabetes; E55.9 Vitamin D deficiency, unspecified; Z98.84 Bariatric surgery status; E78.2 Mixed hyperlipidemia

== ENCOUNTER 2024-05-29 15:55 | Emergency (ER) | payer MEDICARE ==
[~2024-05-29] VITALS: Ht 154.9 cm; Wt 68.3 kg
[2024-05-29] MEDS ORDERED: PANT20TA6 (16:47)
[2024-05-29 17:09] LABS: BASO % 0.7 % (0.0-1.0); EOS # 0.1 10^3/uL (0.0-0.5); EOS % 1.6 % (0.0-3.0); HEMATOCRIT 41.6 % (36.0-47.0); HEMOGLOBIN 13.3 g/dl (12.0-15.5); LYMPH # 2.4 10^3/uL (1.5-5.0); LYMPH % 41.7 % (24.0-44.0); MEAN CORPUSCULAR HEMOGLOBIN 31.4 pg (27.0-33.0); MEAN CORPUSCULAR VOLUME 98.3 fl (80.0-96.0); MONO # 0.5 10^3/uL (0.0-0.8); MONO % 8.3 % (2.0-8.0); NEUTROPHILS # 2.7 10^3/uL (1.5-8.5); NEUTROPHILS % 47.5 % (36.0-66.0); PLATELET COUNT, AUTOMATED 166 10^3/uL (150-450); RED BLOOD COUNT 4.23 10^6/uL (4.00-5.40); WHITE BLOOD COUNT 5.7 10^3/uL (4.0-10.0)
[2024-05-29 17:26] LABS: CK-MB VALUE MASS < 1.0 NG/ML (<3.6); LIPASE 25 U/L (12-53)
[2024-05-29 17:29] LABS: ALBUMIN 3.4 G/DL (3.2-5.2); ALKALINE PHOSPHATASE 109 U/L (35-104); ALT/SGPT 21 U/L (7.0-40); AST/SGOT 22 U/L (<34); BILIRUBIN,DIRECT 0.1 MG/DL (<0.4); BILIRUBIN,TOTAL 0.4 MG/DL (0.3-1.2); TOTAL PROTEIN 6.7 G/DL (5.7-8.2)
[2024-05-29 17:30] LABS: CPK CREATINE PHOSPHOKINASE 70 U/L (34-145); MB/CK RELATIVE INDEX 1.42 (< OR =4)
[2024-05-29 17:34] LABS: INR 1.15; PROTHROMBIN TIME 15.1 SECONDS (12.5-14.5)
[2024-05-29 18:11] VITALS: BP 168/79; TEMP 97; O2SAT 98
== END 2024-05-29 18:12 | disposition home or self-care (01) ==
LOC: M ED 15:55
DX: R07.9 Chest pain, unspecified (principal); I10 Essential (primary) hypertension; E78.5 Hyperlipidemia, unspecified; Z98.84 Bariatric surgery status; Z88.8 Allergy status to other drugs, medicaments and biological substances; Z86.79 Personal history of other diseases of the circulatory system; Z79.01 Long term (current) use of anticoagulants; Z79.02 Long term (current) use of antithrombotics/antiplatelets; Z79.899 Other long term (current) drug therapy

== ENCOUNTER → 2024-06-01 | Outpatient (CLI) | payer MEDICARE ==
[~2024-06-01] MED LIST changes: +PANT20TA6
[2024-06-01 15:04] LABS: BASO # 0.1 10^3/uL (0.0-0.2); BASO % 0.7 % (0.0-1.0); EOS # 0.1 10^3/uL (0.0-0.5); EOS % 1.3 % (0.0-3.0); HEMATOCRIT 42.3 % (36.0-47.0); HEMOGLOBIN 13.5 g/dl (12.0-15.5); LYMPH # 2.6 10^3/uL (1.5-5.0); LYMPH % 37.6 % (24.0-44.0); MEAN CORPUSCULAR HEMOGLOBIN 31.4 pg (27.0-33.0); MEAN CORPUSCULAR HGB CONC 31.9 g/dl (32.0-36.5); MEAN CORPUSCULAR VOLUME 98.4 fl (80.0-96.0); MONO # 0.5 10^3/uL (0.0-0.8); MONO % 7.2 % (2.0-8.0); NEUTROPHILS # 3.6 10^3/uL (1.5-8.5); NEUTROPHILS % 52.9 % (36.0-66.0); PLATELET COUNT, AUTOMATED 161 10^3/uL (150-450); WHITE BLOOD COUNT 6.8 10^3/uL (4.0-10.0)
[2024-06-01 15:06] LABS: ALBUMIN 3.5 G/DL (3.2-5.2); ALKALINE PHOSPHATASE 111 U/L (35-104); ALT/SGPT 19 U/L (7.0-40); AST/SGOT 18 U/L (<34); BILIRUBIN,TOTAL 0.6 MG/DL (0.3-1.2); BLOOD UREA NITROGEN 9 MG/DL (9-23); CALCIUM LEVEL 8.8 MG/DL (8.3-10.6); CARBON DIOXIDE LEVEL 28 MMOL/L (20-31); CHLORIDE LEVEL 107 MMOL/L (98-107); CREATININE FOR GFR 0.71 MG/DL (0.55-1.30); GLOMERULAR FILTRATION RATE > 60.0 (>39); GLUCOSE, FASTING 96 MG/DL (74-106); POTASSIUM SERUM 3.8 MMOL/L (3.5-5.1); PTH INTACT 90.4 PG/ML (18.5-88.0); SODIUM LEVEL 145 MMOL/L (136-145); TOTAL PROTEIN 6.8 G/DL (5.7-8.2)
[2024-06-01 15:07] LABS: TOTAL 25(OH) VITAMIN D 26.6 NG/ML (20.0-100.0)
[2024-06-01 15:08] LABS: APPEARANCE, URINE HAZY (CLEAR); BACTERIA, URINE AUTO 1+ (NEGATIVE); BILIRUBIN, URINE AUTO NEGATIVE (NEGATIVE); BLOOD, URINE BLOOD 1+ (NEGATIVE); COLOR, URINE AMBER (YELLOW); GLUCOSE, URINE (UA) AUTO NEGATIVE (NEGATIVE); KETONE, URINE AUTO NEGATIVE (NEGATIVE); LEUKOCYTE ESTERASE, URINE AUTO 2+ (NEGATIVE); MUCUS, URINE SMALL (NEGATIVE); NITRITE, URINE AUTO POSITIVE (NEGATIVE); PROTEIN, URINE AUTO NEGATIVE (NEGATIVE); RBC, URINE AUTO 13 /HPF (0-3); SPECIFIC GRAVITY URINE AUTO 1.015 (1.002-1.035); SQUAMOUS EPITHELIAL CELL UR AU 4 /HPF (0-6); UROBILINOGEN, URINE AUTO 0.2 mg/dL (0.0-2.0); WBC, URINE AUTO 33 /HPF (0-3)
== END ==
LOC: M PLALAB 12:33
PROVIDERS: ATTEND Physician Assistant Medical
DX: I48.0 Paroxysmal atrial fibrillation (principal); R35.0 Frequency of micturition; I10 Essential (primary) hypertension; E55.9 Vitamin D deficiency, unspecified; Z98.84 Bariatric surgery status; Z79.899 Other long term (current) drug therapy

== ENCOUNTER → 2024-06-04 | Outpatient (CLI) | payer MEDICARE | LOC: M EKG 10:08 | PROVIDERS: ATTEND Registered Nurse | DX: R42 Dizziness and giddiness (principal) ==

== ENCOUNTER → 2024-10-08 | Outpatient (CLI) | payer MEDICARE | LOC: M RAD 12:05 | PROVIDERS: ATTEND Otolaryngology | DX: R22.1 Localized swelling, mass and lump, neck (principal) ==

== ENCOUNTER → 2024-10-23 | Outpatient (CLI) | payer MEDICARE ==
[2024-10-23 13:17] LABS: BASO # 0.1 10^3/uL (0.0-0.2); BASO % 0.7 % (0.0-1.0); EOS # 0.1 10^3/uL (0.0-0.5); EOS % 1.9 % (0.0-3.0); LYMPH # 3.0 10^3/uL (1.5-5.0); LYMPH % 40.5 % (24.0-44.0); MONO # 0.6 10^3/uL (0.0-0.8); MONO % 8.1 % (2.0-8.0); NEUTROPHILS # 3.5 10^3/uL (1.5-8.5); NEUTROPHILS % 48.7 % (36.0-66.0); PLATELET COUNT, AUTOMATED 174 10^3/uL (150-450)
[2024-10-23 13:19] LABS: ALT/SGPT 18.0 U/L (7.0-40); AST/SGOT 22.0 U/L (<34); CALCIUM LEVEL 8.3 MG/DL (8.3-10.6); CARBON DIOXIDE LEVEL 28.0 MMOL/L (20-31); CHLORIDE LEVEL 106.0 MMOL/L (98-107); CREATININE FOR GFR 0.75 MG/DL (0.55-1.30); GLOMERULAR FILTRATION RATE 80.4 (>32); POTASSIUM SERUM 4.3 MMOL/L (3.5-5.1); SODIUM LEVEL 144.0 MMOL/L (136-145)
== END ==
LOC: M PLALAB 11:22
PROVIDERS: ATTEND Physician Assistant Medical
DX: I10 Essential (primary) hypertension (principal)

== ENCOUNTER → 2024-12-09 | Outpatient (CLI) | payer MEDICARE ==
[~2024-12-09] MED LIST changes: +CVS500TA35 PO; +HEAL1TAB6 PO; +MECL-58 PO; +MULT-90 PO; -PANT20TA6; +PANT20TA6 PO
[2024-12-09 12:06] VITALS: TEMP 97.4
[2024-12-09 12:44] VITALS: BP 178/88; O2SAT 96
[2024-12-09] MEDS: LIDOCAINE 1% MDV 20 ML VIAL SC STA (12:56)
== END ==
LOC: M IRPRO 12:01
PROVIDERS: ATTEND Otolaryngology
DX: R22.1 Localized swelling, mass and lump, neck (principal)

== ENCOUNTER → 2024-12-17 | Outpatient (CLI) | payer MEDICARE | LOC: M WHC 13:24 | PROVIDERS: ATTEND Physician Assistant Medical | DX: Z12.31 Encounter for screening mammogram for malignant neoplasm of breast (principal); M85.88 Other specified disorders of bone density and structure, other site ==

== ENCOUNTER → 2025-03-30 | Outpatient (REF) | payer MEDICARE | LOC: M LAB REF 17:04 | DX: R30.0 Dysuria (principal) ==